=== PATIENT | female | born 1945 | race Caucasian/White ===

== ENCOUNTER 2018-07-08 11:18 | Inpatient (IN) | payer MEDICARE, BC ==
--- NOTE | 2018-07-08 11:32 | ED ---
HPI Chest Pain - HPI Summary HPI Summary: A 73 y/o F brought in by ambulance sent from Dr. Starks's, cardio, office to ED c/o two episodes of mid-sternal CP with initial onset early yesterday morning at 0300. The CP woke her from sleep, she took valium which made her feel better. She felt at baseline after that. Last night, she had sharp, severe mid- sternal CP at approx 0500 that woke her from sleep again. She took Valium, and feels mostly better, but there is some mild CP still present at bedside. Denies nausea, SOB. She has not had similar CP to this prior. She was recently in [place], and travelled back to [place] two weeks ago, and she is supposed to travel to [place] this evening because she is scheduled for a cataracts operation in two days. PMHx: AAA, HTN. Denies PMHx of DM, ND, angina. No prior abd surgeries. - History of Current Complaint Chief Complaint: EDChestPainROMI Time Seen by Provider: 07/08/18 11:26 Hx Obtained From: Patient, Family/New Grad Rn - , Medical Records Onset/Duration: Started Days Ago, Atraumatic, Still Present Timing: Intermittent, Lasting Minutes Initial Severity: Severe Current Severity: Mild Pain Intensity: 0 Pain Scale Used: 0-10 Numeric Chest Pain Location: Mid Sternal Character: Sharp/Stabbing Alleviating Factor(s): Other: - valium Associated Signs and Symptoms: Negative: Shortness of Breath, Nausea - Allergy/Home Medications Allergies/Adverse Reactions: Allergies Allergy/AdvReac Type Severity Reaction Status Date / Time No Known Allergies Allergy Verified 07/08/18 11:24 Home Medications: Home Medications Aspirin EC TAB* [Ecotrin EC Low Dose 81 MG*] 81 mg PO DAILY 07/08/18 [History Confirmed 07/08/18] Calcium Carbonate/Vitamin D3 [Calcium/Vitamin D] 1 cap PO DAILY 07/08/18 [ History Confirmed 07/08/18] Diazepam TAB(*) [Valium TAB(*)] 5 mg PO Q6H PRN 07/08/18 [History Confirmed ] Esomeprazole(NF) [NEXium(NF)] 20 mg PO DAILY 07/08/18 [History Confirmed ] Hydrochlorothiazide TAB* [Hydrodiuril TAB*] 12.5 mg PO DAILY 07/08/18 [History Confirmed 07/08/18] Irbesartan [Avapro] 75 mg PO DAILY 07/08/18 [History Confirmed 07/08/18] Conifer-3 Fatty Acids (Nf) [Fish Oil (NF)] 1,000 mg PO DAILY 07/08/18 [History Confirmed 07/08/18] Spironolactone TAB* [Aldactone TAB*] 12.5 mg PO DAILY 07/08/18 [History Confirmed 07/08/18] Vitamin B Complex CAP* [B Complex CAP*] 1 cap PO DAILY 07/08/18 [History Confirmed 07/08/18] PMH/Surg Hx/FS Hx/Imm Hx Previously Healthy: No Endocrine/Hematology History: Denies: Hx Diabetes Cardiovascular History: Reports: Hx Aneurysm, Hx Hypertension Denies: Hx Angina, Hx Myocardial Infarction Respiratory History: Comment Only: Other Respiratory Problems/Disorders - hx of colapsed lung 1995 unknown reason Infectious Disease History: No Infectious Disease History: Denies: Traveled Outside the [place] in Last 30 Days - Family History Known Family History: Positive: Cardiac Disease, Diabetes - Social History Occupation: Retired Lives: With Family Hx Tobacco Use: Yes Review of Systems Positive: Chest Pain Negative: Shortness Of Breath Negative: Nausea All Other Systems Reviewed And Are Negative: Yes Physical Exam - Summary Physical Exam Summary: Appearance: Well-appearing, Well-nourished, lying in bed comfortably Skin: Warm, dry, no obvious rash Eyes: sclera anicteric, no conjunctival pallor ENT: mucous membranes moist, pharynx appears normal Neck: Supple, nontender Respiratory: Clear to auscultation, no signs of respiratory distress Cardiovascular: Normal S1, S2. No murmurs. Normal distal pulses in tibial and radial bilaterally. Abdomen: Soft, nontender, normal active bowel sounds present Musculoskeletal: Normal, Strength/ROM Intact Neurological: A&Ox3, awake and alert, mentation is normal, speech is fluent and appropriate Psychiatric: affect is normal, does not appear anxious or depressed Triage Information Reviewed: Yes Vital Signs On Initial Exam: Initial Vitals Temp Pulse Resp BP Pulse Ox 97.4 F 71 19 156/76 98 07/08/18 11:19 07/08/18 11:19 07/08/18 11:19 07/08/18 11:19 07/08/18 11:19 Vital Signs Reviewed: Yes Diagnostics - Vital Signs Vital Signs Temp Pulse Resp BP Pulse Ox 07/08/18 11:19 97.4 F 71 19 156/76 98 - Laboratory Result Diagrams: 07/09/18 06:02 07/08/18 11:42 Lab Statement: Any lab studies that have been ordered have been reviewed, and results considered in the medical decision making process. - Radiology CXR Radiology Interpretation Completed By: Radiologist Summary of Radiographic Findings: IMPRESSION: No active cardiopulmonary disease. ED provider has reviewed this report. - CT C/A/P CTA CT Interpretation Completed By: Radiologist Summary of CT Findings: IMPRESSION: 1. DILATATION OF THE ASCENDING THORACIC AORTA UP TO 3.9 CM TRANSVERSELY WITH SPURRING OF THE AORTIC ROOT. THERE IS NO INTIMAL FLAP TO SUGGEST DISSECTION. 2. INFRARENAL ABDOMINAL AORTIC ANEURYSM MEASURING UP TO 3.2 CM IN MAXIMUM TRANSVERSE DIMENSION. 3. ANEURYSMAL DILATATION OF THE RIGHT COMMON ILIAC ARTERY. 4. ATHEROSCLEROSIS. 5. NO PULMONARY ARTERIAL FILLING DEFECT TO SUGGEST PULMONARY EMBOLISM. 6. DIVERTICULOSIS. ED provider has reviewed this report. - Ultrasound No standard instances Ultrasound Interpretation Completed By: Radiologist Summary of Ultrasound Findings: ABD U/S IMPRESSION: BILOBED ANEURYSM OF THE INFRARENAL ABDOMINAL AORTA MEASURING UP TO 2.9 CM TRANSVERSELY. ED provider has reviewed this report. - EKG 1146 Cardiac Rate: NL - 65 bpm EKG Rhythm: Sinus Rhythm Summary of EKG Findings: Lateral T-wave inversions in V5 and V6, which is new compared to most recent EKG on 06/09/2008. Re-Evaluation - Re-Evaluation 1 Re-Evaluation Time: 12:37 Change: Improved Comment: Discussing results with patient. Patient's pain is minimal. Chest Pain Course/Dx - Course Course Of Treatment: Pt is a 73 y/o F presenting after two episodes of mid- sternal CP that woke her from sleep with initial onset early yesterday morning at 0300. Most recently, she had sharp, severe mid-sternal CP at approx 0500 this date. She took Valium, and felt mostly better, with some mild CP still present at bedside. Denies nausea, SOB. Air travel from [place] two weeks ago. PMHx: AAA, HTN. Denies PMHx of DM, ND, angina. No prior abd surgeries. Lab work shows RBC: 5.21, D-dimer: 577, Creatinine: 1.06, BUN/C: 20.8, troponin: 1.00. EKG shows NSR at 65 bpm with lateral T-wave inversions in V5 and V6, which is new compared to most recent EKG on 06/09/2008. UA results are unremarkable. CXR is unremarkable. ABD ultrasound shows "BILOBED ANEURYSM OF THE INFRARENAL ABDOMINAL AORTA MEASURING UP TO 2.9 CM TRANSVERSELY." C/A/P CTA shows "1. DILATATION OF THE ASCENDING THORACIC AORTA UP TO 3.9 CM TRANSVERSELY WITH SPURRING OF THE AORTIC ROOT. THERE IS NO INTIMAL FLAP TO SUGGEST DISSECTION. 2. INFRARENAL ABDOMINAL AORTIC ANEURYSM MEASURING UP TO 3.2 CM IN MAXIMUM TRANSVERSE DIMENSION. 3. ANEURYSMAL DILATATION OF THE RIGHT COMMON ILIAC ARTERY. 4. ATHEROSCLEROSIS. 5. NO PULMONARY ARTERIAL FILLING DEFECT TO SUGGEST PULMONARY EMBOLISM. 6. DIVERTICULOSIS.". Consult with Dr. Patterson, cardio, who recommended heparin, CTA and hospitalist admission. Consult with Dr. Phillips, hospitalist, who will admit patient. - Diagnoses Provider Diagnoses: Non-STEMI (non-ST elevated myocardial infarction) - Provider Notifications Discussed Care Of Patient With: Zac Patterson - cardio Time Discussed With Above Provider: 12:49 Instructed by Provider To: Other - Recommends CTA, heparin and hospitalist admission. - Critical Care Time Critical Care Time: 30-74 min Discharge - Sign-Out/Discharge Documenting (check all that apply): Patient Departure - ADMIT Patient Received Moderate/Deep Sedation with Procedure: No - Discharge Plan Condition: Guarded Disposition: ADMITTED TO [facility] - Billing Disposition and Condition Condition: GUARDED Disposition: Admitted to [facility] - Attestation Statements Document Initiated by Scribe: Yes Documenting Scribe: Surjit Bruce Provider For Whom Scribe is Documenting (Include Credential): Dr. Basil Montoya MD Scribe Attestation: Surjit Marion scribed for Dr. Basil Montoya MD on 07/09/18 at 1123. Scribe Documentation Reviewed: Yes Provider Attestation: The documentation as recorded by the Surjit junior accurately reflects the service I personally performed and the decisions made by me, Dr. Basil Montoya MD Status of Scribe Document: Viewed Consult Consult: 1250: Consult with Dr. Phillips, hospitalist Will admit patient.
[2018-07-08 11:50] LABS: ABS Eosinophils 0.1 10^3/ul (0-0.6); ABS Lymphocytes 1.5 10^3/ul (1.0-4.8); ABS Monocytes 0.6 10^3/ul (0-0.8); ABS Neutrophils 4.2 10^3/ul (1.5-7.7); Eosinophil % 1.5 %; Hematocrit 45 % (35-47); Hemoglobin 15.1 g/dL (12.0-16.0); Lymphocyte % 23.6 %; Mean Corpuscular HGB Conc 34 g/dL (31-36); Mean Corpuscular Hemoglobin 29 pg (27-31); Mean Corpuscular Volume 86 fL (80-97); Mean Platelet Volume 7.7 fL (7.4-10.4); Platelet Count 149 10^3/uL (150-450); Red Blood Count 5.21 10^6 /uL (3.70-4.87); Red Cell Distribution Width 14 % (10.5-15); White Blood Count 6.5 10^3/uL (3.5-10.8)
[2018-07-08 12:13] LABS: ALT 15 U/L (7-52); AST 27 U/L (13-39); Albumin 4.2 g/dL (3.2-5.2); Albumin/Globulin Ratio 1.3 (1-3); Alkaline Phosphatase 77 U/L (34-104); Anion Gap 6 mmol/L (2-11); BUN/Creatinine Ratio 20.8 (8-20); Blood Urea Nitrogen 22 mg/dL (6-24); CO2 Carbon Dioxide 30 mmol/L (22-32); Calcium 9.9 mg/dL (8.6-10.3); Chloride 105 mmol/L (101-111); EGFR African American 61.3 (>60); EGFR Non-African American 50.7 (>60); Globulin 3.2 g/dL (2-4); Glucose 109 mg/dL (70-100); Potassium 4.2 mmol/L (3.5-5.0); Sodium 141 mmol/L (135-145); Total Protein 7.4 g/dL (6.4-8.9)
[2018-07-08] MEDS ORDERED: Heparin DRIP 25,000 UNITS(*) 25,000 UNITS/500 ML BAG IV SCH (13:00)
[2018-07-08] MEDS ORDERED: Iodixanol* (CONTRAST) 320 MG/ML 100 ML SDV IV ONE (13:00)
[2018-07-08] MEDS ORDERED: Heparin VIAL(*) 5000 UNITS/ML VIAL (FIVE THOUSAND) IV PRN (13:04)
[2018-07-08 13:11] LABS: Urine Appearance Clear; Urine Bilirubin Negative (Negative); Urine Blood Negative (Negative); Urine Color Straw; Urine Glucose Negative (Negative); Urine Ketones Negative (Negative); Urine Nitrite Negative (Negative); Urine Protein Negative (Negative); Urine Specific Gravity 1.004 (1.010-1.030); Urine Urobilinogen Negative (Negative)
[2018-07-08] MEDS ORDERED: Aspirin 81 mg CHEW TAB* 81 MG TAB.CHEW PO ONE (13:24)
[2018-07-08] MEDS ORDERED: Diazepam TAB(*) 5 MG PO PRN (13:36)
[2018-07-08] MEDS ORDERED: Diazepam TAB(*) 5 MG PO ONE (13:38)
[2018-07-08] MEDS ORDERED: Acetaminophen TAB* 325 MG PO PRN (13:44)
[2018-07-08] MEDS ORDERED: Nitroglycerin TAB 0.4 MG* 0.4 MG TAB SL PRN (13:44)
[2018-07-08 14:47] LABS: Troponin I 0.93 ng/mL (<0.04)
[2018-07-08] MEDS ORDERED: Iodixanol 320 (CONTRAST) 100 ML SDV IV SCH (15:06)
[2018-07-08 15:50] LABS: Activated Partial Thrombo Time 29.9 seconds (26.0-36.3)
--- NOTE | 2018-07-08 16:08 | HP ---
CC: Dr. Miguel; Dr. Starks; Dr. Patterson.* HISTORY AND PHYSICAL: DATE OF ADMISSION: 07/08/18 TIME OF EVALUATION: 1:20 p.m. PRIMARY CARE PROVIDER: Dr. Miguel. HEARING OFFICER: Dr. Starks. CONSULTING HEARING OFFICER: Dr. Patterson. HISTORY OF PRESENT ILLNESS: Mrs. Keen is a 73-year-old lady with a past medical history of hypertension, aortic aneurysm, anxiety, who presents to the emergency room with complaints of chest pain. The patient states that she was in her usual state of health until 2 nights ago. She had actually been seen by Cardiology on 05/28/18 and at that time, she was thought to have slight orthostatic hypotension and possible dehydration, and on that visit, her diuretics had been decreased to every other day. She said that she was feeling well until the evening on 07/06/18. She went to bed in her usual state of health and woke up around 2 in the morning with retrosternal chest pain, 5/10, described as a pressure. She states that she took a Valium. She was able to relax. Her pain subsided and she was able to sleep. Yesterday, she was feeling her usual. She went to do mother's Day celebration and had no complaints of chest pain or discomfort. She went to bed and around 4 in the morning, she woke up once again with this retrosternal chest pain, at this time was described as severe, 10/10, intensity pressure like. She once again took her Valium with some improvement and went to Dr. Starks's office where she was seen by a nurse and advised to come to the emergency room for further evaluation. At the time of my interview, the patient denies chest pain, palpitation, shortness of breath, nausea or any other complaints. She is very anxious and emotional about her test results. She denies any other prior episodes of chest pain at rest or exertional. There is no fever, chills, nausea, vomiting, diarrhea, shortness of breath, cough, or urinary complaints. PAST MEDICAL HISTORY: 1. Hypertension. 2. Aneurysm of the aorta (as per Dr. Starks's note thoracic aorta, but as per the patient's significant other, she has thoracic and abdominal aorta aneurysm). 3. Moderate mitral regurgitation. 4. Jhve-xh-xyqykmxy aortic regurgitation. 5. Anxiety. PAST SURGICAL HISTORY: 1. Status post hysterectomy and left oophorectomy. 2. Pneumothorax. MEDICATION LIST: 1. Aspirin 81 mg p.o. daily. 2. Calcium plus vitamin D 1 capsule p.o. daily. 3. Diazepam 5 mg p.o. q.6 hours p.r.n. anxiety. 4. Nexium 10 mg p.o. daily as needed for GERD. 5. Hydrochlorothiazide 12.5 mg p.o. daily. 6. Spironolactone 12.5 mg p.o. daily. Please note that on the last Cardiology note, the patient was supposed to be taking hydrochlorothiazide on Mondays, Wednesdays, and Fridays and spironolactone on Tuesdays, , and Saturdays , but she is actually taking both daily. 7. Irbesartan 75 mg p.o. daily. 8. Fish oil 1000 mg p.o. daily. 9. Vitamin B 1 capsule p.o. daily. ALLERGIES: The patient has no known drug allergies, but she did have reaction to Paxil and Lexapro. FAMILY HISTORY: Father had coronary artery disease. Her mother had a history of hypertension and of a stroke, also had diabetes. 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 She is a former smoker of 1 pack a day for 21 years and quit 23 years ago. She occasionally has a glass of wine. Surrogate decision maker is her significant other, Basil Nj, phone number is [phone]. REVIEW OF SYSTEMS: A 14-point review of systems was performed and all the pertinent negatives and positive findings are in the HPI. PHYSICAL EXAMINATION GENERAL: The patient is a pleasant lady, anxious, sitting up in the ED stretcher, in no acute distress. VITAL SIGNS: Temperature 98.3, heart rate is 69, respiratory rate is 16, oxygen saturation is 99% on room air, blood pressure is 165/90. HEENT: Pupils are equal. Moist mucous membranes. CHEST: Breath sounds bilaterally with no added sounds. CVS: Normal S1, S2. Regular rate and rhythm. No systolic murmur. ABDOMEN: Soft and nontender. Bowel sounds are present. There is no pulsatile mass. EXTREMITIES: No edema. NEUROLOGIC: She is alert and oriented x3. She can move all 4 extremities. LABORATORY AND IMAGING DATA: The patient had a CBC that showed WBC of 6.5, hemoglobin of 15.1, hematocrit of 45, platelets of 149 with 65% neutrophils. D - Dimer is 577. Chemistry: Sodium 141, potassium 4.2, chloride 105, bicarb of 30, BUN of 22, creatinine of 1.0, glucose of 109, calcium 9.9. LFTs are normal. First troponin is 1. EKG done on 07/08/18 showed sinus rhythm at 65 beats per minute with ST depressions and T-wave inversions in V5 and V6. Those are new when compared to her prior EKG, but the last one in our system from 2008. An abdominal ultrasound was performed, but the report is still pending. ASSESSMENT AND PLAN: Mrs. Keen is a 73-year-old female with a past medical history of hypertension, aortic aneurysm, who presents to the emergency room with complaints of 2 episodes of chest pain, found to have a [id number] myocardial infarction. 1. [id number]-qsbnqvmnf myocardial infarction. The patient will be admitted to the telemetry floor and she will receive aspirin, heparin drip, and statin. Her heart rate is in 60s, so we will not start beta pancho at this time. We will check serial troponins, serial EKGs, and also fasting lipid profile. Cardiology consult was requested with Dr. Patterson, should decide what is the next step on her management. I suspect she probably need a cardiac catheterization. An echocardiogram was ordered to look for wall motion abnormalities and to document her ejection fraction. Her last echo as per Dr. Starks's note was done in 2014, had an EF of 55% to 60% with [id number] AR, mild-to- moderate AI, mild-to- moderate TR, mildly dilated ascending aorta. She will also have a CTA of the chest, abdomen and pelvis to evaluate her aortic aneurysm , but I suspect her symptomatology is secondary to [id number] [place]. 2. Hypertension. The patient will be continued on hydrochlorothiazide, irbesartan, and spironolactone. I suspect her blood pressure elevation at this time is secondary to anxiety related to her diagnosis. 3. Anxiety. We will continue diazepam as needed. 4. DVT prophylaxis. The patient has a score of 3 on a DVT prophylaxis assessment guide and she is already started on heparin drip . 5. Code status is full. TIME SPENT: Approximately 60 minutes was spent with the patient and significant other interview, medical records review, physical examination to complete this admission, more than half of this time was spent lgcz-gw-busa with the patient and coordination of care. [id number]/[facility] #: [id number] MTDD
[2018-07-08] MEDS: Hydrochlorothiazide TAB* 25 MG PO SCH (16:12)
[2018-07-08] MEDS: Spironolactone TAB* 25 MG PO SCH (16:13)
[2018-07-08] MEDS: Losartan TAB* 25 MG PO SCH (16:13)
--- NOTE | 2018-07-08 16:55 | ECHO ---
*[facility]* [place] [address] Fax #: [phone] Transthoracic Echocardiogram Patient: Osmani, Height: 66 in / Viesia 167.6 cm : 1945 Weight: 134.7 lb / Study Date: 07/08/2018 61.2 kg Age: 73 BP: 148 / 76 Gender: F BMI/BSA: 21.8 kg/m^2 HR: 64 bpm / 1.69 m^2 *[employer]ilities Operator: * Ena Sepulveda [facility] *Referring Physician: * Emi MontgomeryReading Physician: * Zac Patterson MD Indications: Myocardial Infarction (new). History: Aortic aneurysm. Risk factors: Current tobacco use. Hypertension. Conclusions Summary: 1. Left ventricle: Systolic function is normal. The estimated ejection fraction is 50-55%. Hypokinesis of the inferolateral myocardium. 2. Right ventricle: Systolic function is normal. 3. Mitral valve: There is no evidence of stenosis. There is mild regurgitation. 4. Aortic valve: There is no evidence of stenosis. There is mild to moderate regurgitation. 5. Tricuspid valve: There is mild regurgitation. 6. Ascending aorta: The ascending aorta is mildly dilated. 7. Pericardium, extracardiac: There is no significant pericardial effusion. Study data: Transthoracic echocardiogram. Procedure: Transthoracic echocardiography was performed. Image quality was fair. Complete 2D, spectral Doppler, and color flow Doppler. Location: Bedside. Patient status: Inpatient. Patient room number: 447 01. Rhythm: Normal sinus rhythm. Findings Left ventricle: The cavity size is normal. Wall thickness is mildly increased. Systolic function is normal. The estimated ejection fraction is 50-55%. Regional wall motion abnormalities: Hypokinesis of the inferolateral myocardium. There is no consistent Doppler evidence of clinically significant diastolic dysfunction. Right ventricle: The cavity size is normal. Systolic function is normal. Systolic pressure is within the normal range. Ventricular septum: The outflow septum has a sigmoid appearance. Left atrium: The atrium is normal in size. Right atrium: The atrium is normal in size. Mitral valve: The annulus is mildly calcified. The leaflets are mildly thickened. There is no evidence of stenosis. There is mild regurgitation. The peak diastolic gradient is 2.0 mm Hg. Aortic valve: The annulus is mildly calcified. The valve is trileaflet. The leaflets are normal thickness. There is no evidence of stenosis. There is mild to moderate regurgitation. The ratio of LVOT to aortic valve peak velocity is 0.77. The ratio of LVOT to aortic valve mean velocity is 0.78. The mean systolic gradient is 3.0 mm Hg. The peak systolic gradient is 7.0 mm Hg. Tricuspid valve: The leaflets are normal thickness. There is no evidence of stenosis. There is mild regurgitation. Pulmonic valve: Not well visualized. There is mild regurgitation. The peak systolic gradient is 2.0 mm Hg. Aorta: Aortic root: The aortic root is mildly dilated. Ascending aorta: The ascending aorta is mildly dilated. Aortic arch: The aortic arch is appears normal. Pericardium: There is no significant pericardial effusion. Pulmonary arteries: Not well visualized. Systemic veins: Inferior vena cava: The vessel is normal in size. The respirophasic diameter changes are blunted (< 50%). Measurements Left ventricle Value Ref Mitral valve Value Ref LUCIANA, LAX 4.1 cm 3.8 - 5.2 Peak E 0.71 m/sec ----- ESD, LAX 2.7 cm 2.2 - 3.5 Peak A 0.74 m/sec ----- FS, LAX 34 % 27 - 45 Decel time 216 ms ----- PW, ED, LAX (H) 1.1 cm 0.6 - 0.9 Peak grad, D 2.0 mm Hg ----- EF 64 % 54 - 74 Peak E/A ratio 1 ----- E', lat antonio, TDI (L) 6.0 cm/sec >=10.0 E/e', lat antonio, 12 Pulmonic valve Value Ref TDI Peak v, S 0.71 m/sec ----- E', med antonio, TDI (L) 4.4 cm/sec >=7.0 Peak grad, S 2.0 mm Hg --- -- E/e', med antonio, 16 TDI Tricuspid valve Value Ref E', avg, TDI 5.2 cm/sec TR peak v 2.6 m/sec <=2 .8 E/e', avg, TDI 14 <=14 Peak RV-RA grad, S 27 mm Hg --- -- LVOT Value Ref Aortic root Value Ref Peak krishna, S 1 m/sec Root diam 3.7 cm <3.9 Mean grad, S 2 mm Hg Ascending aorta Value Ref Ventricular septum Value Ref AAo AP diam, S 3.6 cm ----- IVS, ED, LAX (H) 1.5 cm 0.6 - 0.9 Aortic arch Value Ref Right ventricle Value Ref Arch diam 2.5 cm ----- LUCIANA, LAX 2.0 cm Pressure, S 30 mm Hg Decending aorta Value Ref Kelsie peak krishna 0.45 m/sec ----- Left atrium Value Ref AP dim, ES 2.80 cm 2.70 - Pulmonary artery Value Ref 3.80 Pressure, S 28.0 mm Hg ----- Right atrium Value Ref Inferior vena cava Value Ref Estimated RAP 3 mm Hg Diam 1.8 cm ----- Aortic valve Value Ref Pulmonary veins Value Ref Antonio diam, ED 2.1 cm Peak v, S 0.58 m/sec ----- Peak v, S 1.29 m/sec Peak v, D 0.32 m/sec ----- VTI, S 27.9 cm Peak S/D ratio 1.8 ----- Mean grad, S 3.0 mm Hg Peak A rev v 0.26 m/sec ----- Peak grad, S 7.0 mm Hg A rev duration 132 ms ----- AR peak v 4.08 m/sec AR PHT 488 ms AR peak grad 67 mm Hg Legend: (L) and (H) marc values outside specified reference range. Prepared and electronically signed by Zac Patterson MD 07/08/2018 16:55
[2018-07-08 17:58] LABS: Troponin I 1.19 ng/mL (<0.04)
[2018-07-08] MEDS ORDERED: Ticagrelor* 90 MG TAB PO ONE (18:54)
--- NOTE | 2018-07-08 19:24 | CONS ---
CC: Dr. Vonnie Miguel * CARDIOLOGY CONSULTATION: DATE OF CONSULT: 07/08/18 INDICATION FOR CONSULTATION: Chest pain, non-STEMI. HISTORY OF PRESENT ILLNESS: The patient is a 73-year-old female with a history of hypertension, history of mild aortic aneurysm in her ascending aorta, who is having typical and unstable anginal type chest pain over the weekend. The patient states that on Sunday night she had an episode of mild chest discomfort with sort of a heaviness under her chest. It did not radiate anywhere. She was a little diaphoretic with it. She had no nausea. It lasted for approximately an hour and then resolved. The patient felt unwell most of the day on Sunday and then at 1 o'clock in the morning on Sunday morning, she had an episode of severe chest pain that lasted for approximately an hour. She rated it as about 8/10. She had some diaphoresis associated with it. The pain finally subsided and she was able to get to sleep. This morning, she went to our [place] office for evaluation and she was sent to the emergency room. On arrival to the emergency room, her EKG demonstrated normal sinus rhythm with T-wave inversions in the lateral leads compared to her previous EKGs. The patient was admitted to the hospital and started on heparin. When I went to see the patient at 5 o'clock, she was having about 2/10 chest pain that was slightly higher than her chest discomfort when she left the emergency room. She was given 1 sublingual nitroglycerin and her pain completely resolved. The patient does have a mildly dilated ascending aortic aneurysm that measures 3.9 cm. She has had CAT scans and echocardiograms throughout the years, it has been stable. PAST MEDICAL HISTORY: Significant for ascending aortic aneurysm, mild aortic stenosis, hypertension. PAST SURGICAL HISTORY: Hysterectomy. CURRENT MEDICATIONS: 1. Avapro 75 mg a day. 2. Spironolactone 12.5 mg a day. 3. Hydrochlorothiazide 12.5 mg a day. 4. Frost-3 tablets. 5. Aspirin 81 mg a day. The patient had been on atenolol and diltiazem in the past. ALLERGIES: To PAXIL and LEXAPRO. FAMILY HISTORY: Father had history of coronary artery disease, at 90. Mother of a myocardial infarction at 85. SOCIAL HISTORY: She lives with her significant other. 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 She is a former smoker. She quit 23 years ago. One glass of wine a day. She exercises on a regular basis. REVIEW OF SYSTEMS: Negative for fevers and chills. Negative for changes in bowel or bladder habits. Negative for change in weight. PHYSICAL EXAM: Height is 5 feet 6 inches, weight is 123 pounds, temperature 97.8, heart rate is 65, blood pressure 133/62, respiratory rate is 16, oxygen saturation 100% on room air. Sclerae anicteric. Oropharynx is pink without erythema. Carotids are 2+ without bruits. JVD is normal. Thyroid is normal. Cardiac Exam: S1, S2 without any murmurs, rubs, or gallops. PMI is normal. Lungs are clear to auscultation. Extremities show no edema. She has 2+ pulses throughout. The patient is awake, alert, and oriented. She moves all 4 extremities equally. DIAGNOSTIC STUDIES/LAB DATA: CBC within normal limits. Chemistries within normal limits. Initial troponin 1.00, second troponin 0.93. Her transthoracic echocardiogram shows normal LV systolic function, ejection fraction of 50%. There is inferolateral hypokinesis. The valves are all within normal limits. IMPRESSION AND PLAN: This is a 73-year-old female, who comes in with typical unstable anginal type symptoms and elevated troponin. She was ruled in for non- ST- elevation myocardial infarction. The patient was started on beta-blockers and heparin in the emergency room. Again, the patient was having some mild chest pain on my arrival to the floor, but 1 sublingual nitroglycerin resolved the discomfort. The patient denies any nausea or vomiting. She denies any diaphoresis. The patient will continue on her IV heparin, nitroglycerin p.r.n. Her other cardiac medications will continue. The patient will undergo cardiac catheterization in the morning unless she becomes unstable overnight. This case was discussed with Dr. Jorge. [id number]/[facility] #: [id number] WILLIAM
[2018-07-08 21:05] LABS: Troponin I 1.51 ng/mL (<0.04)
[2018-07-08] MEDS: Metoprolol Tartrate TAB* 25 MG PO SCH (21:51)
[2018-07-08] MEDS: Atorvastatin* 40 MG TAB PO SCH (21:52)
[2018-07-08] MEDS ORDERED: NS 0.9% 1000 ML** 1,000 ML IV SCH (23:55)
[2018-07-09 00:01] LABS: Troponin I 1.63 ng/mL (<0.04)
[2018-07-09 02:58] LABS: Troponin I 1.78 ng/mL (<0.04)
[2018-07-09 06:29] LABS: ABS Basophils 0.1 10^3/ul (0-0.2); ABS Eosinophils 0.2 10^3/ul (0-0.6); ABS Lymphocytes 1.4 10^3/ul (1.0-4.8); ABS Monocytes 0.6 10^3/ul (0-0.8); ABS Neutrophils 4.4 10^3/ul (1.5-7.7); Eosinophil % 2.6 %; Hematocrit 43 % (35-47); Hemoglobin 14.4 g/dL (12.0-16.0); Lymphocyte % 20.7 %; Mean Corpuscular HGB Conc 34 g/dL (31-36); Mean Corpuscular Hemoglobin 29 pg (27-31); Mean Corpuscular Volume 86 fL (80-97); Platelet Count 146 10^3/uL (150-450); Red Blood Count 4.99 10^6 /uL (3.70-4.87); Red Cell Distribution Width 14 % (10.5-15); White Blood Count 6.6 10^3/uL (3.5-10.8)
[2018-07-09 06:47] LABS: Cholesterol 187 mg/dL; HDL Cholesterol 59.3 mg/dL; LDL Cholesterol 116 mg/dL; Triglycerides 61 mg/dL
[2018-07-09 06:50] LABS: Troponin I 1.18 ng/mL (<0.04)
[2018-07-09] MEDS: Spironolactone TAB* 25 MG PO SCH (07:54)
[2018-07-09] MEDS: Losartan TAB* 25 MG PO SCH (07:56)
[2018-07-09] MEDS: Hydrochlorothiazide TAB* 25 MG PO SCH (07:57)
[2018-07-09] MEDS: Aspirin EC TAB* 81 MG TAB.EC PO SCH (07:58)
[2018-07-09] MEDS: Metoprolol Tartrate TAB* 25 MG PO SCH ×2 (07:59→20:46)
[2018-07-09] MEDS ORDERED: diPHENhydraMINE PO* 25 MG PO PRN (08:00)
[2018-07-09] MEDS: Calcium/Vitamin D TAB 250/125* TAB PO SCH (08:00)
[2018-07-09] MEDS: Ticagrelor* 90 MG TAB PO SCH ×2 (08:01→20:44)
--- NOTE | 2018-07-09 09:26 | PN ---
Subjective Date of Service: 07/09/18 Objective Active Medications: Acetaminophen (Tylenol Tab*) 650 mg PO Q6H PRN Aspirin (Aspirin Ec Tab*) 81 mg PO DAILY [facility] Atorvastatin Calcium (Lipitor*) 40 mg PO 2100 [facility] Calcium/Vitamin D (Oscal D Tab 250/125*) 1 tab PO DAILY [facility] Diazepam (Valium Tab(*)) 5 mg PO Q6H PRN Heparin Sodium (Porcine) (Heparin Vial(*)) 0 - 3,650 units IV .SEE COMMENTS PRN Hydrochlorothiazide (Hydrodiuril Tab*) 12.5 mg PO DAILY [facility] Heparin Sodium/Dextrose (Heparin Drip 25,000 Units(*)) 25,000 units in 500 mls @ 0 mls/hr IV PER RATE JEANETH; Protocol Sodium Chloride (Ns 0.9% 1000 Ml) 1,000 mls @ 75 mls/hr IV .per rate JEANETH Iodixanol (Visipaque 320 (Contrast)) 100 ml IV ONCE JEANETH Losartan Potassium (Cozaar Tab*) 25 mg PO DAILY [facility] Metoprolol Tartrate (Lopressor Tab*) 25 mg PO BID [facility] Nitroglycerin (Nitroglycerin Tab 0.4 Mg*) 0.4 mg SL Q5M PRN Spironolactone (Aldactone Tab*) 12.5 mg PO DAILY [facility] Ticagrelor (Brilinta*) 90 mg PO BID [facility] Vital Signs: Temp Pulse Resp BP Pulse Ox 97.1 F 63 20 138/62 98 07/09/18 07:29 07/09/18 07:29 07/09/18 07:29 07/09/18 07:29 07/09/18 07:29 Oxygen Devices in Use Now: None Result Diagrams: 07/09/18 06:02 07/08/18 11:42 Assess/Plan/Problems-Billing Assessment: Ms. Keen is a 73 yo F with a PMH of HTN, aortic aneurysm, anxiety who was admitted on 07/08/18 with chest pain and NSTEMI. - Patient Problems (1) NSTEMI (non-ST elevated myocardial infarction) Comment: - Troponin peaked at 1.78. EKG with T wave inversions in lateral leads. Echo shows hypokinesis of the inferolateral myocardium. - Appreciate cardiology consultation. Plan for cardiac cath today. - Continue heparin gtt. Continue aspirin, brilinta, atorvastatin, metoprolol, and losartan (2) Hypertension Comment: - SBP 110-130s - Continue hctz, losartan, metoprolol, spironolactone (3) Aortic aneurysm Comment: - CTA chest/abd/pelvis found stable thoracic and abdominal aneurysms < 5.5cm. - Monitor per routine. (4) Anxiety Comment: - Continue diazepam (5) DVT prophylaxis Comment: - Heparin gtt. (6) Full code status Comment: - Inpatient
--- NOTE | 2018-07-09 09:44 | PN ---
Subjective Date of Service: 07/09/18 Interval History: Ms. Keen reports that she is feeling well this morning though she is nervous about her cardiac cath. She has had no chest pain since taking nitroglycerin yesterday. Objective Active Medications: Acetaminophen (Tylenol Tab*) 650 mg PO Q6H PRN Aspirin (Aspirin Ec Tab*) 81 mg PO DAILY [facility] Atorvastatin Calcium (Lipitor*) 40 mg PO 2100 [facility] Calcium/Vitamin D (Oscal D Tab 250/125*) 1 tab PO DAILY [facility] Diazepam (Valium Tab(*)) 5 mg PO Q6H PRN Diphenhydramine HCl (Benadryl Po*) 25 mg PO ONCE PRN Heparin Sodium (Porcine) (Heparin Vial(*)) 0 - 3,650 units IV .SEE COMMENTS PRN Hydrochlorothiazide (Hydrodiuril Tab*) 12.5 mg PO DAILY [facility] Heparin Sodium/Dextrose (Heparin Drip 25,000 Units(*)) 25,000 units in 500 mls @ 0 mls/hr IV PER RATE JEANETH; Protocol Sodium Chloride (Ns 0.9% 1000 Ml) 1,000 mls @ 75 mls/hr IV .per rate [facility] Iodixanol (Visipaque 320 (Contrast)) 100 ml IV ONCE [facility] Losartan Potassium (Cozaar Tab*) 25 mg PO DAILY [facility] Metoprolol Tartrate (Lopressor Tab*) 25 mg PO BID [facility] Nitroglycerin (Nitroglycerin Tab 0.4 Mg*) 0.4 mg SL Q5M PRN Spironolactone (Aldactone Tab*) 12.5 mg PO DAILY [facility] Ticagrelor (Brilinta*) 90 mg PO BID [facility] Vital Signs: Temp Pulse Resp BP Pulse Ox 97.1 F 63 20 138/62 98 07/09/18 07:29 07/09/18 07:29 07/09/18 07:29 07/09/18 07:29 07/09/18 07:29 Oxygen Devices in Use Now: None Appearance: Female lying in bed in NAD Eyes: No Scleral Icterus Ears/Nose/Mouth/Throat: Mucous Membranes Moist Neck: Trachea Midline Respiratory: Symmetrical Chest Expansion and Respiratory Effort, Clear to Auscultation Cardiovascular: NL Sounds; No Murmurs; No JVD, No Edema Abdominal: NL Sounds; No Tenderness; No Distention Extremities: No Edema Skin: No Rash or Ulcers Neurological: Alert and Oriented x 3, NL Muscle Strength and Tone Nutrition: Taking PO's Result Diagrams: 07/09/18 06:02 07/08/18 11:42 Assess/Plan/Problems-Billing Assessment: Ms. Keen is a 73 yo F with a PMH of HTN, aortic aneurysm, anxiety who was admitted on 07/08/18 with chest pain and NSTEMI. - Patient Problems (1) NSTEMI (non-ST elevated myocardial infarction) Comment: - Troponin peaked at 1.78. EKG with T wave inversions in lateral leads. Echo shows hypokinesis of the inferolateral myocardium. - Appreciate cardiology consultation. Plan for cardiac cath today. - Continue heparin gtt. Continue aspirin, brilinta, atorvastatin, metoprolol, and losartan (2) Hypertension Comment: - SBP 110-130s - Continue hctz, losartan, metoprolol, spironolactone (3) Aortic aneurysm Comment: - CTA chest/abd/pelvis found stable thoracic and abdominal aneurysms < 5.5cm. - Monitor per routine. (4) Anxiety Comment: - Continue diazepam (5) DVT prophylaxis Comment: - Heparin gtt. (6) Full code status Comment: Status and Disposition: Inpatient
[2018-07-09] MEDS ORDERED: Heparin 2 UNITS/ML IVPREMIX* 3,000 UNIT/1,500 ML BAG IV ONE (11:02)
[2018-07-09] MEDS ORDERED: Iodixanol 320 (CONTRAST) 100 ML SDV ONE ×2 (11:03→11:20)
[2018-07-09] MEDS ORDERED: Lidocaine 1% INJ* 10 MG/ML 30 ML SDV ONE ×2 (11:03→11:20)
[2018-07-09] MEDS ORDERED: fentaNYL* 50 MCG/ML 2 ML VIAL (100 MCG VIAL) ONE (11:19)
[2018-07-09] MEDS ORDERED: Midazolam* 1 MG/ML 5 ML VIAL (5 MG) ONE (11:19)
[2018-07-09] MEDS ORDERED: Heparin(*) 1000 UNIT/ML 10 ML VIAL CATH LAB IV ONE (11:19)
[2018-07-09] MEDS ORDERED: VERAPAMIL 2.5 MG/ML 2 ML VIAL ** 5 mg/2 ml ONE (11:19)
[2018-07-09] MEDS ORDERED: nitroGLYCERIN DRIP* 25,000 MCG/250 ML BTL ONE (11:20)
[2018-07-09] MEDS ORDERED: Heparin 2 UNITS/ML IVPREMIX* 2,000 UNIT/1,000 ML BAG IV ONE (11:53)
[2018-07-09] MEDS ORDERED: Bivalirudin(*) 250 MG VIAL ONE (11:58)
[2018-07-09] MEDS ORDERED: Nitroglycerin TAB 0.4 MG* 0.4 MG TAB SL PRN (12:43)
[2018-07-09] MEDS: NS 0.9% 1000 ML** 1,000 ML IV SCH ×2 (13:05→17:44)
--- NOTE | 2018-07-09 15:38 | CATH ---
CC: Dr. Zac Patterson; Dr. Vonnie Miguel* INTERVENTIONAL REPORT: DATE OF PROCEDURE: 07/09/18. INDICATION FOR PROCEDURE: Asked by Dr. Zac Patterson who had performed a diagnostic coronary catheterization to perform intervention on a critical 95% proximal circumflex lesion in the setting of a non-STEMI posterior wall myocardial infarction with focal wall motion abnormality on echocardiogram. PROCEDURE: Balloon angioplasty and placement of a 3.0 x 20 mm long Synergy drug - eluting stent in the proximal circumflex postdilated to 3.2 to 3.3 mm with high pressure balloon inflation. EQUIPMENT UTILIZED: 1. Right radial artery sheath - already in place by Dr. Zac Patterson, a 6- Mauritanian Glidesheath Slender. 2. Diagnostic guidewires - a 260 length Cobb curved guidewire and a Wholey 145 length guidewire. 3. Guiding catheter utilized was a VL3.5 curve 6-Mauritanian guide catheter. 4. Interventional wire - a BMW 190 cm guidewire. 5. Three stent placement balloon angioplasty catheter - a 2.75 X 15 mm long Emerge balloon. 6. Stent utilized - a 3.0 x 20 mm long Synergy drug-eluting stent. 7. Post stent deployment balloon catheter - a 3.0 x 12 mm long NC Emerge balloon. 8. Hemostasis device utilized at end of case - a Vasc Band by [employer]. MEDICATIONS GIVEN: An ACT was checked and found to be significantly subtherapeutic. The patient had already received Brilinta earlier in the day 180 mg last night, loading dose 90 mg this morning. As such, Angiomax bolus and an Angiomax drip was started. DESCRIPTION OF PROCEDURE: The patient was already prepped and draped in sterile fashion by Dr. Zac Patterson who performed a diagnostic procedure using the right radial artery approach. On taking over the case after the decision was made by Dr. Patterson that he wished to have the proximal circumflex intervened on, guiding views were obtained utilizing the RunWay 6-Mauritanian VL3.5 curve guide catheter. After the Angiomax bolus was given and a drip started, the BMW was advanced down the circumflex artery. Balloon angioplasty was performed followed by placement of a 3.0 x 20 mm long Synergy drug-eluting stent deployed. Following this, postdeployment balloon inflations to high pressure were made with the 3.0 x 12 mm long NC Emerge balloon. The artery was then assessed in 2 views. The wire and the sheath were removed and hemostasis was obtained with the Vasc Band. A reverse Barbeau was a B. The total contrast used was 110 cc of Visipaque dye. The radiation exposure included 15.1 minutes of fluoro time. The air kerma radiation was 1791 mGy. The DAP radiation was 9659 microgray/m2. RESULTS: INTERVENTION INTO PROXIMAL CIRCUMFLEX ARTERY: Successful reduction of critical 95% lesion to less than 5% PATITO-3 flow, no dissection seen, utilizing balloon angioplasty, placement of a 3.0 x 20 mm long Synergy drug-eluting stent, postdilated to 3.2 to 3.3 mm. OVERALL ASSESSMENT: Successful intervention into critically stenosed proximal circumflex. The patient should be maintained on dual-antiplatelet therapy for minimum of 1 year's time. Aggressive risk factor management through her primary clerk general office with Dr. Patterson as the hospital clerk general office should be pursued. The patient used to be a smoker, but quit 23 years ago and as such, we will not have to deal with any smoking issue. Continued aggressive blood pressure management and control of cholesterol will be under the guidance of her primary physician and her primary clerk general office. [id number]/[facility] #: [id number] WILLIAM
--- NOTE | 2018-07-09 20:20 | CATH ---
CARDIAC CATHETERIZATION REPORT: DATE OF PROCEDURE: 07/09/18 - ROOM #ICU-05 PROCEDURE: Cardiac catheterization including coronary angiography. INDICATION: Non-Q-wave [place], chest pain. The patient is a 73-year-old female with little past medical history, who was admitted to the hospital with typical anginal type symptoms at rest. The patient ruled in for a myocardial infarction and abnormal EKG changes. Cardiac catheterization was recommended. The patient had an echocardiogram yesterday, which demonstrated mildly to moderately reduced LV systolic function, EF 40% with inferolateral severe hypokinesis, no significant valvular abnormality. DESCRIPTION OF PROCEDURE: The patient was brought to the procedure room in a fasting state. Informed consent had been obtained prior to the procedure. All labs had been reviewed. The patient was placed supine on the procedure table. Her right radial area was prepped and draped in the usual fashion. 1% lidocaine was used for local anesthesia. The radial artery was entered by a Seldinger technique and a guidewire was placed. Over the guidewire, a 6-Icelandic hydrophilic sheath was placed. Through the sheath, an infusion of verapamil and nitroglycerin was done. The patient underwent coronary angiography using a 6 -Icelandic JL4 guide catheter and a TIG catheter. A total of 60 cc of Visipaque dye was used. A total of 8 minutes of fluoro time was used. The patient tolerated the procedure well. The patient under-went stenting to her left circumflex artery at the end of the procedure. Please see Dr. Ortiz's notes for those details. FINDINGS: 1. Left main: The left main was normal in size. It bifurcated into the LAD and circumflex. There was mild calcification of the left main itself. There was no evidence of stenosis. 2. Left anterior descending artery: The LAD was normal in size. It gave off 2 diagonal vessels. The proximal LAD had an eccentric 50% stenosis with mild calcification. The remainder of the LAD and the D2 vessel were without disease. The first diagonal vessel had an eccentric 70% stenosis overall with a relatively small vessel 2 mm in size. 3. Left circumflex artery: The circumflex artery was normal in size. It gave off 1 large obtuse marginal branch. There was an eccentric 95% stenosis at the left circumflex into the first OM1 vessel. The remainder of the OM1 vessel had mild disease. 4. Right coronary artery: The right coronary artery was a large dominant vessel giving off a PDA and a posterolateral branch. There was mild calcification of the proximal vessel. There was mild disease in the proximal right coronary artery. The remainder of the vessel and PDA were without disease. IMPRESSION: 1. 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 2. Moderate stenosis of the first diagonal vessel off the LAD. There was a 70 % stenosis. Overall, it was a small vessel about 2 mm in size. 3. 50% stenosis of the proximal right coronary artery. RECOMMENDATIONS: The patient will undergo angioplasty and stenting of her left circumflex artery. [id number]/[facility] #: [id number] WILLIAM
[2018-07-09] MEDS: Atorvastatin* 40 MG TAB PO SCH (20:44)
[2018-07-10 05:11] LABS: ABS Eosinophils 0.1 10^3/ul (0-0.6); ABS Lymphocytes 0.9 10^3/ul (1.0-4.8); ABS Monocytes 0.5 10^3/ul (0-0.8); ABS Neutrophils 4.7 10^3/ul (1.5-7.7); Eosinophil % 2.2 %; Hematocrit 40 % (35-47); Hemoglobin 13.5 g/dL (12.0-16.0); Lymphocyte % 14.4 %; Mean Corpuscular HGB Conc 34 g/dL (31-36); Mean Corpuscular Hemoglobin 29 pg (27-31); Mean Corpuscular Volume 86 fL (80-97); Mean Platelet Volume 7.6 fL (7.4-10.4); Platelet Count 136 10^3/uL (150-450); Red Blood Count 4.67 10^6 /uL (3.70-4.87); Red Cell Distribution Width 14 % (10.5-15); White Blood Count 6.3 10^3/uL (3.5-10.8)
[2018-07-10 05:28] LABS: Calcium 9.1 mg/dL (8.6-10.3); EGFR African American 56.4 (>60); EGFR Non-African American 46.6 (>60)
--- NOTE | 2018-07-10 08:08 | PN ---
<Lauryn Ivy - Last Filed: 07/10/18 08:20> Subjective Date of Service: 07/10/18 - NSTEMI s/p ELO Proximal Lcx Interval History: No recurrent c/o chest pain since intervention. She has been OOB ambulating to toilet with no complaints. She denies dizziness, palpitations, sensation of heart racing, dyspnea or chest pain. She is anxious to go home today. No events occurred overnight per nursing staff ( Kadie CELIS ) whom I personally spoke with. Medications Active Medications: Acetaminophen (Tylenol Tab*) 650 mg PO Q6H PRN PRN Reason: pain/fever Aspirin (Aspirin Ec Tab*) 81 mg PO DAILY [facility] Last Admin: 07/09/18 07:58 Dose: 81 mg Atorvastatin Calcium (Lipitor*) 40 mg PO 2100 [facility] Last Admin: 07/09/18 20:44 Dose: 40 mg Calcium/Vitamin D (Oscal D Tab 250/125*) 1 tab PO DAILY [facility] Last Admin: 07/09/18 08:00 Dose: Not Given Diazepam (Valium Tab(*)) 5 mg PO Q6H PRN PRN Reason: ANXIETY Last Admin: 07/09/18 10:59 Dose: 5 mg Heparin Sodium (Porcine) (Heparin Vial(*)) 0 - 3,650 units IV .SEE COMMENTS PRN PRN Reason: FOR SLIDING SCALE BOLUSING Hydrochlorothiazide (Hydrodiuril Tab*) 12.5 mg PO DAILY [facility] Last Admin: 07/09/18 07:57 Dose: 12.5 mg Iodixanol (Visipaque 320 (Contrast)) 100 ml IV ONCE [facility] Stop: 07/10/18 15:05 Losartan Potassium (Cozaar Tab*) 25 mg PO DAILY [facility] Last Admin: 07/09/18 07:56 Dose: 25 mg Metoprolol Tartrate (Lopressor Tab*) 25 mg PO BID [facility] Last Admin: 07/09/18 20:46 Dose: Not Given Nitroglycerin (Nitroglycerin Tab 0.4 Mg*) 0.4 mg SL Q5M PRN PRN Reason: Chest pain Last Admin: 07/08/18 16:12 Dose: 0.4 mg Spironolactone (Aldactone Tab*) 12.5 mg PO DAILY [facility] Last Admin: 07/09/18 07:54 Dose: 12.5 mg Ticagrelor (Brilinta*) 90 mg PO BID [facility] Last Admin: 07/09/18 20:44 Dose: 90 mg Objective Vital Signs: Temp Pulse Resp BP Pulse Ox 98.9 F 83 25 104/69 94 07/10/18 03:45 07/10/18 07:30 07/10/18 07:30 07/10/18 07:30 07/10/18 07:30 Oxygen Devices in Use Now: None Appearance: A+O x3, cooperative with exam, NAD Ears/Nose/Mouth/Throat: NL Teeth, Lips, Gums, Mucous Membranes Moist Neck: NL Appearance and Movements; NL JVP Respiratory: Symmetrical Chest Expansion and Respiratory Effort, Clear to Auscultation Cardiovascular: NL Sounds; No Murmurs; No JVD, No Edema, - - right radial access site is intact, no blood noted on 2X2. cap refill < 3 seconds, good sensation, non tender to palpation and strong palpable pulse. No evidence of hematoma. Abdominal: NL Sounds; No Tenderness; No Distention Extremities: No Edema Skin: No Rash or Ulcers Neurological: Alert and Oriented x 3 Lines/Tubes/Other Access: Clean, Dry and Intact Peripheral IV Laboratory Results: 07/10/18 05:01 07/10/18 05:01 APTT 27.3 seconds (26.0-36.3) 07/10/18 05:01 Total Bilirubin 0.60 mg/dL (0.2-1.0) 07/08/18 11:42 AST 27 U/L (13-39) 07/08/18 11:42 ALT 15 U/L (7-52) 07/08/18 11:42 Alkaline Phosphatase 77 U/L (34-104) 07/08/18 11:42 CK-MB (CK-2) 5.8 ng/mL (0.6-6.3) 07/09/18 21:20 Total Protein 7.4 g/dL (6.4-8.9) 07/08/18 11:42 Albumin 4.2 g/dL (3.2-5.2) 07/08/18 11:42 Globulin 3.2 g/dL (2-4) 07/08/18 11:42 Albumin/Globulin Ratio 1.3 (1-3) 07/08/18 11:42 Triglycerides 61 mg/dL 07/09/18 06:02 Cholesterol 187 mg/dL 07/09/18 06:02 LDL Cholesterol 116 mg/dL 07/09/18 06:02 HDL Cholesterol 59.3 mg/dL 07/09/18 06:02 07/08/18 07/08/18 07/08/18 11:42 13:55 17:30 Troponin I 1.00 H* 0.93 H* 1.19 H* 07/08/18 07/08/18 07/09/18 20:36 23:28 02:27 Troponin I 1.51 H* 1.63 H* 1.78 H* 07/09/18 06:02 Troponin I 1.18 H* Laboratory Results - last 24 hr 07/09/18 07/09/18 07/09/18 11:42 14:08 21:20 WBC RBC Hgb Hct MCV MCH MCHC RDW Plt Count MPV Neut % (Auto) Lymph % (Auto) [place] % (Auto) Eos % (Auto) Baso % (Auto) Absolute Neuts (auto) Absolute Lymphs (auto) Absolute Monos (auto) Absolute Eos (auto) Absolute Basos (auto) Absolute Nucleated RBC Nucleated RBC % APTT POC Activ Clotting Time 156 Sodium Potassium Chloride Carbon Dioxide Anion Gap BUN Creatinine Est GFR ( Amer) Est GFR (Non-Af Amer) BUN/Creatinine Ratio Glucose Calcium CK-MB (CK-2) 4.0 5.8 07/10/18 07/10/18 07/10/18 05:01 05:01 05:01 WBC 6.3 RBC 4.67 Hgb 13.5 Hct 40 MCV 86 MCH 29 MCHC 34 RDW 14 Plt Count 136 L MPV 7.6 Neut % (Auto) 74.1 Lymph % (Auto) 14.4 [place] % (Auto) 8.7 Eos % (Auto) 2.2 Baso % (Auto) 0.6 Absolute Neuts (auto) 4.7 Absolute Lymphs (auto) 0.9 L Absolute Monos (auto) 0.5 Absolute Eos (auto) 0.1 Absolute Basos (auto) 0.0 Absolute Nucleated RBC 0.0 Nucleated RBC % 0.0 APTT 27.3 POC Activ Clotting Time Sodium 138 Potassium 4.0 Chloride 108 Carbon Dioxide 25 Anion Gap 5 BUN 16 Creatinine 1.14 H Est GFR ( Amer) 56.4 Est GFR (Non-Af Amer) 46.6 BUN/Creatinine Ratio 14.0 Glucose 97 Calcium 9.1 CK-MB (CK-2) Diagnostic Imaging: Echo 07/08/2018; LVEF 50-55% with hypokinesis of inferolateral region. mild TTA, mild MR, mild to moderate AI [facility] 07/09/2018; LM - no stenosis, LAD Proximal 50%, first Diag 70% small vessel size, 95% Proximal Lcx lesion, RCA dominant with mild disease. She had successful PTCA/ELO to proximal Lcx. EKG Data: Telemetry was reviewed. Occasional PVC, no VT. Sinus rhythm rates 70-80's EKG 07/10/2018; Sinus rhythm rate 83lateral St depression with TW inversion comparable to prior ECG. Assessment/Plan #1 NSTEMI; Troponin peaked at 1.78 on 07/09/2018. She presented to our practice with new lateral ST changes and c/o chst pain (heaviness) She is s/p successful PTCA/ELO to Proximal Lcx on 07/09/2018 with 3.9x20mm Synergy ELO. She will need to be on DAPT for a minimum of 12 months given presentation was PA. She should not leave the until to go home until she physically has the bottle of Brilinta with her. Script already sent to outpatient pharmacy here at [facility]. She is on Lipitor 40mg/day and Lopressor therapy. She is to f/u 07/17/[address] Ortiz. She is aware to not take more than ASA 81/day in combination of brilinta therapy. No driving or lifting > 10 lbs until she sees Dr. Ortiz on #2 HLD; Goal LDL < 70 given newly diagnosed CAD. On Lipitor 40mg Po QHS will need repeat FLP and LFT in 6-8 weeks time. #3 h/o HTN; BP 104/69. LVEF 50-55%. Will d/c HCTZ and Aldactone therapy. Continue Lopressor at 12.5mg PO BID, Losartan 25mg/day. She has newly diagnosed CAD and known TTA I would like to optimize Bblocker. She had relative bradycardia yesterday after proceedure HR in 40-50's that did resolve. She was given 25mg Lopressor. Lopressor held last night. will restart Lopressor at 12.5mg PO BID and monitor on telemetry to ensure HR remains stable. #4 Elevated Creat; Creat today 1.14. HCTZ and Aldactone was stopped. Will need outpatient BMP on 07/12/2018 to ensure creat remains stable. I'll place order in [facility]. She did receive 110cc visipaque #5 Disposition pending course. Monitor on telemetry this morning after Lopressor given to ensure bradycardia does not reoccur. Will d/w Dr. East. Attending: Lilia East <Lilia East - Last Filed: 07/10/18 12:18> Medications Active Medications: Acetaminophen (Tylenol Tab*) 650 mg PO Q6H PRN PRN Reason: pain/fever Aspirin (Aspirin Ec Tab*) 81 mg PO DAILY [facility] Last Admin: 07/10/18 08:23 Dose: 81 mg Atorvastatin Calcium (Lipitor*) 40 mg PO 2100 [facility] Last Admin: 07/09/18 20:44 Dose: 40 mg Calcium/Vitamin D (Oscal D Tab 250/125*) 1 tab PO DAILY [facility] Last Admin: 07/10/18 08:24 Dose: 1 tab Diazepam (Valium Tab(*)) 5 mg PO Q6H PRN PRN Reason: ANXIETY Last Admin: 07/09/18 10:59 Dose: 5 mg Heparin Sodium (Porcine) (Heparin Vial(*)) 0 - 3,650 units IV .SEE COMMENTS PRN PRN Reason: FOR SLIDING SCALE BOLUSING Iodixanol (Visipaque 320 (Contrast)) 100 ml IV ONCE [facility] Stop: 07/10/18 15:05 Losartan Potassium (Cozaar Tab*) 25 mg PO DAILY [facility] Last Admin: 07/10/18 08:24 Dose: 25 mg Metoprolol Tartrate (Lopressor Tab*) 12.5 mg PO Q12H [facility] Nitroglycerin (Nitroglycerin Tab 0.4 Mg*) 0.4 mg SL Q5M PRN PRN Reason: Chest pain Last Admin: 07/08/18 16:12 Dose: 0.4 mg Ticagrelor (Brilinta*) 90 mg PO BID [facility] Last Admin: 07/10/18 08:23 Dose: 90 mg Objective Vital Signs: Temp Pulse Resp BP Pulse Ox 97.9 F 69 22 117/60 96 07/10/18 11:54 07/10/18 12:00 07/10/18 12:00 07/10/18 12:00 07/10/18 12:00 Laboratory Results: 07/10/18 05:01 07/10/18 05:01 APTT 27.3 seconds (26.0-36.3) 07/10/18 05:01 Total Bilirubin 0.60 mg/dL (0.2-1.0) 07/08/18 11:42 AST 27 U/L (13-39) 07/08/18 11:42 ALT 15 U/L (7-52) 07/08/18 11:42 Alkaline Phosphatase 77 U/L (34-104) 07/08/18 11:42 CK-MB (CK-2) 5.8 ng/mL (0.6-6.3) 07/09/18 21:20 Total Protein 7.4 g/dL (6.4-8.9) 07/08/18 11:42 Albumin 4.2 g/dL (3.2-5.2) 07/08/18 11:42 Globulin 3.2 g/dL (2-4) 07/08/18 11:42 Albumin/Globulin Ratio 1.3 (1-3) 07/08/18 11:42 Triglycerides 61 mg/dL 07/09/18 06:02 Cholesterol 187 mg/dL 07/09/18 06:02 LDL Cholesterol 116 mg/dL 07/09/18 06:02 HDL Cholesterol 59.3 mg/dL 07/09/18 06:02 07/08/18 07/08/18 07/08/18 11:42 13:55 17:30 Troponin I 1.00 H* 0.93 H* 1.19 H* 07/08/18 07/08/18 07/09/18 20:36 23:28 02:27 Troponin I 1.51 H* 1.63 H* 1.78 H* 07/09/18 06:02 Troponin I 1.18 H* Assessment/Plan I saw the patient personally, no c/o or angina post stent to Cx coronary artery. New meds post stent include Brilinta, statin and metoprolol. d/c of HCTZ/aldactone noted. Outpatient f/u with Dr Ortiz and then with Dr Starks planned. I agree with the above recommendations and plans.
[2018-07-10] MEDS: Hydrochlorothiazide TAB* 25 MG PO SCH (08:23)
[2018-07-10] MEDS: Spironolactone TAB* 25 MG PO SCH (08:23)
[2018-07-10] MEDS: Ticagrelor* 90 MG TAB PO SCH (08:23)
[2018-07-10] MEDS: Aspirin EC TAB* 81 MG TAB.EC PO SCH (08:23)
[2018-07-10] MEDS: Calcium/Vitamin D TAB 250/125* TAB PO SCH (08:24)
[2018-07-10] MEDS: Losartan TAB* 25 MG PO SCH (08:24)
[2018-07-10] MEDS: Metoprolol Tartrate TAB* 25 MG PO SCH (08:38)
[2018-07-10] MEDS ORDERED: Metoprolol Tartrate TAB* 25 MG PO SCH ×2 (09:00→21:00)
--- NOTE | 2018-07-10 12:23 | PN ---
Subjective Date of Service: 07/10/18 Interval History: Ms. Keen denies complaint and is eager for discharge to home. She specifically denies chest pain or SOB. Objective Active Medications: Acetaminophen (Tylenol Tab*) 650 mg PO Q6H PRN Aspirin (Aspirin Ec Tab*) 81 mg PO DAILY [facility] Atorvastatin Calcium (Lipitor*) 40 mg PO 2100 [facility] Calcium/Vitamin D (Oscal D Tab 250/125*) 1 tab PO DAILY [facility] Diazepam (Valium Tab(*)) 5 mg PO Q6H PRN Heparin Sodium (Porcine) (Heparin Vial(*)) 0 - 3,650 units IV .SEE COMMENTS PRN Iodixanol (Visipaque 320 (Contrast)) 100 ml IV ONCE [facility] Losartan Potassium (Cozaar Tab*) 25 mg PO DAILY [facility] Metoprolol Tartrate (Lopressor Tab*) 12.5 mg PO Q12H [facility] Nitroglycerin (Nitroglycerin Tab 0.4 Mg*) 0.4 mg SL Q5M PRN Ticagrelor (Brilinta*) 90 mg PO BID [facility] Vital Signs: Temp Pulse Resp BP Pulse Ox 97.9 F 69 22 117/60 96 07/10/18 11:54 07/10/18 12:00 07/10/18 12:00 07/10/18 12:00 07/10/18 12:00 Oxygen Devices in Use Now: None Appearance: Female lying in bed in NAD Eyes: No Scleral Icterus Ears/Nose/Mouth/Throat: Mucous Membranes Moist Neck: Trachea Midline Respiratory: Symmetrical Chest Expansion and Respiratory Effort, Clear to Auscultation Cardiovascular: NL Sounds; No Murmurs; No JVD, No Edema Abdominal: NL Sounds; No Tenderness; No Distention Extremities: No Edema Skin: No Rash or Ulcers Neurological: Alert and Oriented x 3, NL Muscle Strength and Tone Nutrition: Taking PO's Result Diagrams: 07/10/18 05:01 07/10/18 05:01 Microbiology and Other Data: Microbiology 07/09/18 14:08 Nasal Screen MRSA (PCR) - Final Nasal Mrsa Not Detected Assess/Plan/Problems-Billing Assessment: Ms. Keen is a 73 yo F with a PMH of HTN, aortic aneurysm, anxiety who was admitted on 07/08/18 with chest pain and NSTEMI. - Patient Problems (1) NSTEMI (non-ST elevated myocardial infarction) Comment: - Now s/p stent to circ. - Appreciate cardiology consultation. - Continue aspirin, brilinta, atorvastatin, metoprolol (lowered dose due to bradycardia), and losartan. She will need to be on dual antiplatelet therapy for at least 12 months. -Follow up 07/17/[address] Wynne (2) Hypertension Comment: - SBP 110-130s - Continue metoprolol and losartan only (3) Aortic aneurysm Comment: - CTA chest/abd/pelvis found stable thoracic and abdominal aneurysms < 5.5cm. - Monitor per routine. (4) Creatinine elevation Comment: - Creatinine has creeped up to 1.14. Plan for recheck on 07/12. (5) Anxiety Comment: - Continue diazepam (6) Full code status Comment: Status and Disposition: Inpatient. Discharge to home.
[2018-07-10 13:52] VITALS: BP 126/69
--- NOTE | 2018-07-10 15:27 | DS ---
CC: Dr. Miguel; Dr. Starks * DISCHARGE SUMMARY: DATE OF ADMISSION: 07/08/18 DATE OF DISCHARGE: 07/10/18 PRIMARY CARE PROVIDER: Dr. Miguel. ATTENDING PHYSICIAN: Dr. Natasha Sommers * (dictation provided by Myrna Paredes NP ). PRIMARY DIAGNOSIS: Non ST-elevation myocardial infarction, status post cardiac drug-eluting stent to the proximal circumflex artery. SECONDARY DIAGNOSES: 1. History of hypertension. 2. History of thoracic and aortic aneurysms. 3. Anxiety. 4. [id number] aortic regurgitation. 5. Moderate mitral regurgitation. PAST SURGICAL HISTORY: 1. Status post hysterectomy and left oophorectomy. 2. History of a pneumothorax. MEDICATIONS AT THE TIME OF DISCHARGE: 1. [place] 3 fatty acid 1000 mg p.o. daily. 2. Esomeprazole 20 mg p.o. daily. 3. Diazepam 5 mg p.o. q.6 hours p.r.n. 4. Calcium with vitamin D one capsule p.o. daily. 5. Vitamin B complex one capsule p.o. daily. 6. Aspirin 81 mg p.o. daily. 7. Ticagrelor 90 mg p.o. b.i.d. 8. Nitroglycerin 0.4 mg sublingually q.5 minutes p.r.n. 9. Metoprolol tartrate 12.5 mg p.o. q.12 hours. 10. Losartan 25 mg p.o. daily. 11. Atorvastatin 40 mg p.o. daily. HOSPITAL COURSE: Ms. Keen is a 73-year-old female with past medical history of hypertension and thoracic aortic aneurysms, who presented to the hospital on 07/08/18 with concern for chest pain. Please see dictated H and P from Emi Jorge for complete details. In brief, the patient stated that she was in her usual health until 2 nights prior to admission she woke at 2:00 a.m. with retrosternal chest pain about 5/10. She took a Valium to try to relax and the pain subsided. Again, on the following night, she again had retrosternal chest pain described as severe, 10/10. Again, she took some Valium with some improvement. She also went to see Dr. Starks who is her buckle coverer and he recommended that she come immediately to the hospital for evaluation. In the emergency room, Ms. Keen had labs which showed a troponin of 1.00. She had a transthoracic echocardiogram which showed an ejection fraction of 50% to 55% with hypokinesis of the inferior lateral myocardium. She had a chest, abdomen and pelvis CTA that showed dilatation of the ascending thoracic aorta up to 3.9 cm transversally with spurring of the aortic root. There is no intimal flap to suggest dissection. Infrarenal abdominal aortic aneurysm measuring up to 3.2 cm in maximum transverse dimension, as well as aneurysmal dilatation of the right common iliac artery. This did not seem significantly changed from any previous imaging available for Ms. Keen. Her EKG at that time showed T-wave inversions in the precordial leads. She had a consultation with Dr. Patterson from Cardiology, who agreed with our plan for initiation of heparin drip and beta-blockers in the emergency room with likely plan for cardiac catheterization. Ms. Keen went on for cardiac catheterization with Dr. Ortiz on 07/09/18, at which time a drug-eluting stent was placed to her proximal circumflex artery, described as a 3.0 x 20 mm long Synergy drug-eluting stent. Ms. Keen has been well since her cardiac catheterization. She denies chest pain or shortness of breath. She was initially started on metoprolol 25 mg p.o. b.i.d., but with this had some relative bradycardia with heart rate running in 40s to 50s. Therefore, the metoprolol has been cut back to 12.5 mg p.o. b.i.d. and she has tolerated that well thus far. She will continue on losartan, but we have discontinued her spironolactone and hydrochlorothiazide. She is going to be discharged home with metoprolol and losartan. In addition, she will be on aspirin and Brilinta for at least 1 year. She is also on atorvastatin. Ms. Keen is medically stable for discharge to home. Her discharge instructions are outlined in detail with her activity instructions. She will be seeing Dr. Ortiz on 07/17/18. The only other thing noted during this hospitalization is that her creatinine was slightly elevated with 1.06 on arrival and today it was 1.14. We are recommending that she have a followup basic metabolic panel on 07/12/18 which can be followed by either the buckle coverer and/or Dr. Miguel. Ms. Keen is medically stable for discharge to home. DISPOSITION: Home. DIET: Low fat, low salt. ACTIVITY: Per the discharge instructions per routine of cardiac catheterization. FOLLOWUP PLANS: Please follow up with Dr. Miguel per routine of this hospitalization. Note is made again for slight elevated creatinine and followup plan for check on 07/12/18. Please follow up with Dr. Ortiz on . TIME SPENT: Approximately 60 minutes was spent on the discharge of this patient ; more than half of the time was spent with the patient at the bedside reviewing the events leading up to this hospitalization and during this hospitalization, performing the physical examination and reviewing my plan of care. MYRNA PAREDES NP [id number]/CPS #: [id number]
== END 2018-07-10 13:57 | disposition home or self-care (01) | DRG 247 ==
LOC: ED 11:18 → MEDTELE 13:21 → ICU 07-09 13:12
PROVIDERS: ADMIT Internal Medicine; ATTEND Hospitalist
PROC: B2111ZZ Fluoroscopy of Multiple Coronary Arteries using Low Osmolar Contrast (ICD-10-PCS; 2018-07-09)
PROC: 027034Z Dilation of Coronary Artery, One Artery with Drug-eluting Intraluminal Device, Percutaneous Approach (ICD-10-PCS; principal; 2018-07-09 10:30)
DX: I21.4 Non-ST elevation (NSTEMI) myocardial infarction (principal); I10 Essential (primary) hypertension; I25.10 Atherosclerotic heart disease of native coronary artery without angina pectoris; F41.9 Anxiety disorder, unspecified; I71.6 Thoracoabdominal aortic aneurysm, without rupture; I08.0 Rheumatic disorders of both mitral and aortic valves; R94.4 Abnormal results of kidney function studies; R00.1 Bradycardia, unspecified; T44.7X5A Adverse effect of beta-adrenoreceptor antagonists, initial encounter; Y92.239 Unspecified place in hospital as the place of occurrence of the external cause; Z88.8 Allergy status to other drugs, medicaments and biological substances; Z90.710 Acquired absence of both cervix and uterus; Z82.49 Family history of ischemic heart disease and other diseases of the circulatory system; Z83.3 Family history of diabetes mellitus; Z90.721 Acquired absence of ovaries, unilateral; Z79.82 Long term (current) use of aspirin; Z79.02 Long term (current) use of antithrombotics/antiplatelets
CPT/HCPCS: 36415; 71046; 71275; 74174; 76705; 80048; 80053; 80061; 81003; 82553; 83690; 84484; 85025; 85347; 85379; 85730; 87641; 93005; 93306; 93454; 99284; A9270-GY; C1725; C1769; C1887; C9600-LD; J0583; J1644; J2250; J3010; Q9967

== ENCOUNTER → 2018-07-15 18:52 | Emergency (ER) | payer MEDICARE, BC ==
--- OUTSIDE RECORDS SUMMARY | 2018-07-15 19:23 | XMS REPORT | Continuity of Care Document ---
:1945 External Reference #:[id number] Author Name Jigar Trinidad Care Team Providers Name Role Phone Vonnie Miguel MD Primary Care Physician Unavailable Payers Date Identification Numbers Payment Provider Subscriber Effective: 2009 Policy Number: [id number] Medicare Wandy Keen PayID: [id number] [address] [place] [address] Effective: 2014 Policy Number: [id number] [employer] Wandy Keen PayID: [id number] [address] [address] [place] [address] Effective: 2005 Policy Number: [id number] [facility] Expires: 2012 PayID: [id number] [address] [address] [place] [address] Problems Active Problems Provider Date Essential hypertension Alfredo Starks M.D. Onset: 03/30/2015 Aneurysm of thoracic aorta Alfredo Starks M.D. Onset: 03/20/2013 Aortic valve disorder Alfredo Starks M.D. Onset: 03/20/2013 Benign essential hypertension Alfredo Starks M.D. Onset: 06/12/2011 Mitral valve disorder Alfredo Starks M.D. 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 Unknown 1 Pack Daily Quit 23 years ago. ETOH Use 1 glass of wine or beer everyother night Tobacco Use Start: Unknown End: Patient is a former Unknown smoker Smoking Status Reviewed: 05/28/18 Patient is a former smoker Enjoy Exercising Enjoys exercising Exercise Type/Frequency Exercises regularly daily. Allergies, Adverse Reactions, Alerts Active Allergies Reaction Severity Comments Date Paxil felt poorly. 12/09/2008 Lexapro lethargy 12/09/2008 Inactive Allergies NKDA 06/16/2008 Medications Active Medications SIG Qnty Indications Ordering Date Provider Avapro 1 tab by 90taizzy Gaytan 07/20/2016 75mg Tablets mouth daily Vivien Starks Spironolactone 1/2 tab by 90taizzy Gaytan 06/25/2015 25mg Tablets mouth daily Vivien Starks Hydrochlorothiazide 1 by mouth 90pako Gaytan 04/04/2012 12.5mg by daily Vivien Starks Capsules Diazepam 1 po qd prn 60tabs Other Physician 06/16/2008 5mg Tablets Practices Asa 1 po qd 30units Unknown 81mg [place]-3 1 po qd. 30caps Unknown 1000mg Capsules Vitamin B 1 po qd 30tabs Unknown 50 Tablets Calcium 600 + D 1 po daily 60tabs Unknown [id number] Tablets Hair/Skin/Nails 1 by mouth Unknown Capsules daily History Medications Avapro take 1/2 tablet 90tabs Alfredo Gaytan 07/29/2015 - 150mg Tablets daily by mouth Vivien Starks 07/20/2016 Inspra 1 by mouth 30tabs I10 Alfredo Gaytan 06/25/2015 - 25mg Tablets every day Vivien Starks 06/25/2015 Diltiazem CD 1 by mouth 90caps Alfredo Gaytan 03/30/2015 - 120mg Caps ER 24HR every day Vivien Starks 08/17/2015 Avapro 1/2 tab by 90taizzy Gaytan 09/25/2012 - 300mg Tablets mouth every day Vivien Starks 07/29/2015 (reduced 07/30/15) Irbesartan/Hydrochlorothia 1/2 po bid Alfredo Gaytan 04/04/2012 - zide Vivien Starks 04/04/2012 300-12.5mg Tablets Irbesartan 1 po qd please 30tabs Nurse Visit cc 04/04/2012 - 300mg Tablets take in pm 09/25/2012 Irbesartan 1 po qd please 30tabs Alfredo Gaytan 03/27/2012 - 300mg Tablets take in pm Vivien Starks 04/04/2012 Avapro 1 po bid 200tabs Alfredo Gaytan 03/04/2012 - 150mg Tablets Vivien Starks 03/27/2012 Hydrochlorothiazide 1 po qd 90caps Alfredo Gaytan 03/04/2012 - 12.5mg Vivien Starks 04/04/2012 Capsules Compression Stockings calf high. 2Pair Alfredo Gaytan 06/10/2010 - Med apply to legs Vivien Starks 02/27/2013 [id number] qd Atenolol 1 po qd 180tabs Alfredo Gaytan 12/09/2008 - 25mg Tablets Vivien Starks 12/10/2008 Caltrate 600 1 po qd Other Physician 06/16/2008 - 1500mg Tablets Practices 06/10/2010 Centrum Silver 1 po qd Other Physician 06/16/2008 - Tablets Practices 05/25/2015 Alendronate Sodium 1 po weekly 4tabs Octavio Jenkins 06/16/2008 - 70mg Tablets Vivien Oconnell 03/04/2012 Tramadol HCL qd prn 30tabs Octavio Jenkins 06/16/2008 - 50mg Tablets Vivien Oconnell 12/09/2008 Desonide apply to 60G Other Physician 06/16/2008 - 0.05% Cream affected area Practices 03/11/2009 bid x 1-2 wks prn Xyzal 1 po qd prn 30tabs Other Physician 06/16/2008 - 5mg Tablets Practices 12/09/2008 Furosemide 1 po qam 90tabs Other Physician 06/16/2008 - 20mg Tablets Practices 12/09/2008 Lexapro 1 po qd Other Physician 06/16/2008 - 5mg Tablets Practices 12/09/2008 Diltiazem CD 1 po qd in am 90caps Other Physician 06/16/2008 - 180mg Caps ER 24HR Practices 03/30/2015 Avapro 1 po qd 90tabs Alfredo Gaytan - 300mg Tablets Vivien Starks 06/12/2011 Lyrica 1 po bid 60caps Unknown - 100mg Capsules 08/12/2009 Premarin 1 po qd Unknown - 0.625mg Tablets 05/25/2015 Lexapro 1/2 po qd 30tabs Unknown - 10mg Tablets 06/12/2011 Celexa 1 po qd Unknown - 20mg Tablets 06/26/2016 Nexium 1 po qd 90units Unknown - 20mg Packet 05/27/2018 Avalide 1 po qd 90tabs Unknown - 300-12.5mg Tablets 03/04/2012 Niaspan 1 po qd Unknown - 500mg Tablets 03/04/2012 Spironolactone 1 tablet daily Alfredo Kate - 25 Vivien Starks 06/25/2015 Celexa 1 by mouth Unknown - 10mg Tablets every day 07/10/2017 Centrum Silver 1 by mouth Unknown - Tablets every day 06/25/2018 Vital Signs Date Vital Result Comment 07/08/2018 10:07am Heart Rate 74 /min BP Systolic Sitting 132 mmHg BP Diastolic Sitting 90 mmHg BP Systolic Standing 130 mmHg BP Diastolic Standing 98 mmHg BP Systolic Lying Down 140 mmHg BP Diastolic Lying Down 90 mmHg Pain Level 0 06/26/2018 1:55pm Heart Rate 60 /min BP Systolic Sitting 112 mmHg Rue, reg cuff BP Diastolic Sitting 60 mmHg Rue, reg cuff BP Systolic Standing 106 mmHg Rue, reg cuff BP Diastolic Standing 60 mmHg Rue, reg cuff 05/28/2018 2:23pm Height 66 inches 5'6" Weight 134.75 lb with shoes Heart Rate 76 /min BP Systolic Sitting 128 mmHg lue reg cuff BP Diastolic Sitting 70 mmHg lue reg cuff BP Systolic Standing 130 mmHg lue reg cuff BP Diastolic Standing 70 mmHg lue reg cuff Respiratory Rate 16 /min BMI (Body Mass Index) 21.7 kg/m2 07/11/2017 3:29pm Height 66 inches 5'6" Weight 141.75 lb w/shoes Heart Rate 64 /min BP Systolic Sitting 110 mmHg L/A Reg Cuff BP Diastolic Sitting 64 mmHg L/A Reg Cuff BMI (Body Mass Index) 22.9 kg/m2 Ejection Fraction 60-65% echo 10/26/2015 06/27/2016 11:36am Height 66 inches 5'6" Weight 152.00 lb w/shoes Heart Rate 60 /min BP Systolic Sitting 108 mmHg LA reg cuff BP Diastolic Sitting 66 mmHg LA reg cuff BMI (Body Mass Index) 24.5 kg/m2 Ejection Fraction 60-65% Echo 10/26/15 10/29/2015 2:32pm Height 66 inches 5'6" Weight 155.00 lb w/ shoes Heart Rate 66 /min reg BP Systolic Sitting 110 mmHg Lue, reg cuff BP Diastolic Sitting 76 mmHg Lue, reg cuff BP Systolic Standing 104 mmHg Lue BP Diastolic Standing 76 mmHg Lue Respiratory Rate 16 /min BMI (Body Mass Index) 25.0 kg/m2 Ejection Fraction 60-65% as of 10/26/15 echo 09/30/2015 9:30am Height 66 inches 5'6" Weight 155.00 lb with shoes Heart Rate 58 /min BP Systolic 160 mmHg LA home cuff BP Diastolic 90 mmHg LA home cuff BP Systolic Sitting 160 mmHg LA reg cuff BP Diastolic Sitting 86 mmHg LA reg cuff BMI (Body Mass Index) 25.0 kg/m2 Ejection Fraction 55% - 60% echo 06/12/14 08/17/2015 11:05am Height 66 inches 5'6" Weight 155.00 lb with shoes Heart Rate 52 /min BP Systolic Sitting 90 mmHg LA reg cuff BP Diastolic Sitting 70 mmHg LA reg cuff BP Systolic Standing 92 mmHg LA reg cuff BP Diastolic Standing 70 mmHg LA reg cuff Respiratory Rate 15 /min BMI (Body Mass Index) 25.0 kg/m2 Ejection Fraction 55-60% 06/12/14 07/29/2015 1:17pm Height 66 inches 5'6" Weight 154.00 lb Heart Rate 56 /min BP Systolic Sitting 98 mmHg Ra reg cuff BP Diastolic Sitting 64 mmHg Ra reg cuff BP Systolic Standing 92 mmHg Ra BP Diastolic Standing 62 mmHg Ra Respiratory Rate 16 /min BMI (Body Mass Index) 24.9 kg/m2 Ejection Fraction 55-60% 06/12/14 06/25/2015 9:25am Height 66 inches 5'6" Weight 157.00 lb w/o shoes Heart Rate 52 /min reg BP Systolic Sitting 142 mmHg Lue, reg cuff BP Diastolic Sitting 98 mmHg Lue, reg cuff BP Systolic Standing 140 mmHg Lue BP Diastolic Standing 90 mmHg Lue Respiratory Rate 16 /min BMI (Body Mass Index) 25.3 kg/m2 Ejection Fraction 55-60% As of 06/12/14 echo 03/30/2015 2:16pm Height 66 inches 5'6" Weight 158.00 lb no shoes Heart Rate 56 /min BP Systolic Sitting 112 mmHg LA reg cuff BP Diastolic Sitting 66 mmHg LA reg cuff BP Systolic Standing 108 mmHg LA reg cuff BP Diastolic Standing 68 mmHg LA reg cuff Respiratory Rate 14 /min BMI (Body Mass Index) 25.5 kg/m2 Ejection Fraction 55-60 % 06/12/14 03/24/2014 1:48pm Height 66 inches 5'6" Weight 160.50 lb Heart Rate 54 /min BP Systolic Sitting 110 mmHg LA, reg BP Diastolic Sitting 78 mmHg LA, reg BMI (Body Mass Index) 25.9 kg/m2 03/20/2013 2:00pm Height 66 inches 5'6" Weight 154.00 lb Heart Rate 54 /min BP Systolic Sitting 112 mmHg left arm, reg cuff BP Diastolic Sitting 66 mmHg left arm, reg cuff Respiratory Rate 16 /min BMI (Body Mass Index) 24.9 kg/m2 05/16/2012 3:11pm Height 66 inches 5'6" Weight 154.00 lb Heart Rate 60 /min BP Systolic Sitting 128 mmHg BP Diastolic Sitting 80 mmHg BMI (Body Mass Index) 24.9 kg/m2 03/04/2012 4:21pm Height 66 inches 5'6" Weight 153.00 lb Heart Rate 50 /min BP Systolic 130 mmHg BP Diastolic 80 mmHg Respiratory Rate 16 /min BMI (Body Mass Index) 24.7 kg/m2 06/12/2011 1:45pm Height 66 inches 5'6" Weight 147.00 lb Heart Rate 52 /min BP Systolic 132 mmHg BP Diastolic 80 mmHg Respiratory Rate 16 /min BMI (Body Mass Index) 23.7 kg/m2 06/10/2010 1:43pm Height 66 inches 5'6" Weight 146.00 lb Heart Rate 56 /min BP Systolic Sitting 134 mmHg BP Diastolic Sitting 78 mmHg BMI (Body Mass Index) 23.6 kg/m2 08/12/2009 2:07pm Height 66 inches 5'6" Weight 143.00 lb Heart Rate 72 /min BP Systolic Sitting 132 mmHg BP Diastolic Sitting 80 mmHg BMI (Body Mass Index) 23.1 kg/m2 03/11/2009 1:52pm Height 66 inches 5'6" Weight 145.00 lb Heart Rate 48 /min BP Systolic Sitting 120 mmHg BP Diastolic Sitting 80 mmHg BMI (Body Mass Index) 23.4 kg/m2 12/09/2008 1:08pm Height 66 inches 5'6" Weight 144.00 lb Heart Rate 57 /min BP Systolic Sitting 140 mmHg BP Diastolic Sitting 95 mmHg Respiratory Rate 16 /min BMI (Body Mass Index) 23.2 kg/m2 Results Test Date Facility Test Result H/L Range Note Basic Metabolic 05/28/2018 [facility] Sodium 142 mmol/L N 135- 145 Panel [address] [place] [address] [phone] Potassium 4.1 mmol/L N 3.5-5.0 Chloride 106 mmol/L N 101-111 Co2 Carbon Dioxide 33 mmol/L High 22-32 Anion Gap 3 mmol/L N 2-11 Glucose 91 mg/dL N 70-100 Blood Urea Nitrogen 20 mg/dL N 6-24 Creatinine 0.93 mg/dL N 0.51-0.95 BUN/Creatinine Ratio 21.5 High 8-20 Calcium 9.4 mg/dL N 8.6-10.3 Egfr Non- 58.9 >60 Egfr 71.3 >60 1 Laboratory test 05/20/2012 [facility] Blood Urea 16 mg/dL 6- [address] [address] [phone] Creatinine 05/20/2012 [facility] Creatinine 1.00 mg/dL 0.50- 1.[address] [place] [address] [phone] Egfr Non- 55.1 >60 Egfr 70.9 >60 2 Laboratory test 06/23/2011 [facility] TSH 1.07 MIU/ML 0.34- 5.60 finding [address] [place] [address] [phone] CBC No Diff 06/23/2011 [facility] White Blood 8.6 CUMM 4.8- 10.8 [address] [facility] [address] [phone] Red Cell Count 4.53 CUMM 4.2-5.4 Hemoglobin 13.8 g/dL 12.0-16.0 Hematocrit 40 % 35-47 Mean Corpuscular Volume 89 um3 79-97 Mean Corpuscular Hemoglob 31 pg 27-31 Mean Corpuscular HGB Cone 34 g/dL 32-36 Redcell Distribution WDTH 13 % 10.5-15 Platelet Count 218 CUMM 150-450 Mean Platelet Volume 8.4 um3 7.4-10.4 Creatinine 06/20/2011 [facility] Creatinine 1.0 mg/dL 0.50- 1.40 [address] [place] [address] [phone] One Over Creatinine 1.00 eGFR Non- 55.3 > 60 eGFR 71.1 > 60 3 Laboratory test finding 06/20/2011 [facility] BUN 18 mg/dL 6- 24 [address] [place] [address] [phone] 1 Because ethnic data is not always readily available, this report includes an eGFR for both -Americans and non- Americans. The National Kidney Disease Education Program (NKDEP) does not endorse the use of the MDRD equation for patients that are not between the ages of 18 and 70, are , have extremes of body size, muscle mass, or nutritional status, or are non- or non-. According to the National Kidney Foundation, irrespective of diagnosis, the stage of the disease is based on the level of kidney function: Stage Description GFR(mL/min/1.73 m(2)) 1 Kidney damage with normal or decreased GFR 90 2 Kidney damage with mild decrease in GFR 60-89 3 Moderate decrease in GFR 30-59 4 Severe decrease in GFR 15-29 5 Kidney failure <15 (or dialysis) 2 Because ethnic data is not always readily available, this report includes an eGFR for both -Americans and non- Americans. The National Kidney Disease Education Program (NKDEP) does not endorse the use of the MDRD equation for patients that are not between the ages of 18 and 70, are , have extremes of body size, muscle mass, or nutritional status, or are non- or non-. According to the National Kidney Foundation, irrespective of diagnosis, the stage of the disease is based on the level of kidney function: Stage Description GFR(mL/min/1.73 m(2)) 1 Kidney damage with normal or decreased GFR 90 2 Kidney damage with mild decrease in GFR 60-89 3 Moderate decrease in GFR 30-59 4 Severe decrease in GFR 15-29 5 Kidney failure <15 (or dialysis) 3 Because ethnic data is not always readily available, this report includes an eGFR for both -Americans and non- Americans. The National Kidney Disease Education Program (NKDEP) does not endorse the use of the MDRD equation for patients that are not between the ages of 18 and 70, are , have extremes of body size, muscle mass, or nutritional status, or are non- or non-. According to the National Kidney Foundation, irrespective of diagnosis, the stage of the disease is based on the level of kidney function: Stage Description GFR(mL/min/1.73 m(2)) 1 Kidney damage with normal or decreased GFR 90 2 Kidney damage with mild decrease in GFR 60-89 3 Moderate decrease in GFR 30-59 4 Severe decrease in GFR 15-29 5 Kidney failure <15 (or dialysis) Procedures Date Code Description Status 07/08/2018 13573 EKG Tracing & Interpretation Completed 05/28/2018 93970 EKG Tracing & Interpretation Completed 07/11/2017 73033 EKG Tracing & Interpretation Completed 06/27/2016 17173 EKG Tracing & Interpretation Completed 10/26/2015 55861 ECHO Transthoracic, Real-Time 2D With Doppler And Color Completed Flow 09/30/2015 40463 EKG Tracing & Interpretation Completed 03/30/2015 54986 EKG Tracing & Interpretation Completed 06/12/2014 96659 ECHO Transthoracic, Real-Time 2D With Doppler And Color Completed Flow 03/24/2014 61702 EKG Tracing & Interpretation Completed 03/20/2013 80481 EKG Tracing & Interpretation Completed 05/16/2012 57500 EKG Tracing & Interpretation Completed 05/02/2012 34004 ECHO Transthoracic, Real-Time 2D With Doppler And Color Completed Flow 03/04/2012 10420 EKG Tracing & Interpretation Completed 06/12/2011 78613 EKG Tracing & Interpretation Completed 06/10/2010 05446 EKG Tracing & Interpretation Completed 08/12/2009 98176 EKG Tracing & Interpretation Completed 03/11/2009 79120 EKG Tracing & Interpretation Completed 03/05/2009 83030 ECHO Transthoracic, Real-Time 2D With Doppler And Color Completed Flow 12/09/2008 52547 EKG Tracing & Interpretation Completed Encounters Type Date Location Provider Dx Diagnosis Office Visit 06/26/2018 [facility] Nurse Visit IC I10 Essential ( primary) 1:30p Of [employer] hypertension Office Visit 05/28/2018 [facility] Breana Jacksno, I71.2 Thoracic aortic 2:30p Of [facility] aneurysm, without rupture I10 Essential (primary) hypertension I34.0 Nonrheumatic mitral (valve) insufficiency E78.00 Pure hypercholesterolemia, unspecified R00.1 Bradycardia, unspecified Office Visit 07/11/2017 3:40p [facility] Alfredo Gaytan I71.2 Thoracic aortic Vivien Starks aneurysm, without rupture I10 Essential (primary) hypertension I34.0 Nonrheumatic mitral (valve) insufficiency E78.00 Pure hypercholesterolemia, unspecified Office Visit 06/27/2016 11:40a [facility] Alfredo Gaytan I71.2 Thoracic aortic Vivien Starks aneurysm, without rupture R00.1 Bradycardia, unspecified I10 Essential (primary) hypertension I34.0 Nonrheumatic mitral (valve) insufficiency Office Visit 10/29/2015 2:30p [facility] CATARINA Rosenthal I71.2 Thoracic aortic Of [employer] aneurysm, without rupture R00.1 Bradycardia, unspecified I10 Essential (primary) hypertension I34.0 Nonrheumatic mitral (valve) insufficiency I35.1 Nonrheumatic aortic (valve) insufficiency Office Visit 09/30/2015 9:20a [facility] Alfredo Gaytan R00.1 Bradycardia, Vivien Starks unspecified I10 Essential (primary) hypertension I71.2 Thoracic aortic aneurysm, without rupture I34.0 Nonrheumatic mitral (valve) insufficiency I35.1 Nonrheumatic aortic (valve) insufficiency Office Visit 08/17/2015 11:00a [facility] Rubi Mayo, I10 Essential (primary) Of [employer] [place] hypertension R00.1 Bradycardia, unspecified I71.2 Thoracic aortic aneurysm, without rupture Office Visit 07/29/2015 1:30p [facility] Rubi Mayo, I35.0 Nonrheumatic aortic Of [employer] [place] (valve) stenosis I34.1 Nonrheumatic mitral (valve) prolapse I71.2 Thoracic aortic aneurysm, without rupture I10 Essential (primary) hypertension Office Visit 06/25/2015 9:45a [facility] Rubi Mayo, I35.0 Nonrheumatic aortic Of [employer] [place] (valve) stenosis I34.1 Nonrheumatic mitral (valve) prolapse I71.2 Thoracic aortic aneurysm, without rupture R00.1 Bradycardia, unspecified I10 Essential (primary) hypertension Office Visit 03/30/2015 2:00p [facility] Alfredo Gaytan I35.0 Nonrheumatic Of [employer] Vivien Starks aortic (valve) stenosis I34.1 Nonrheumatic mitral (valve) prolapse I71.2 Thoracic aortic aneurysm, without rupture I10 Essential (primary) hypertension R00.1 Bradycardia, unspecified Office Visit 03/24/2014 1:40p [facility] Alfredo Gaytan 424.1 Aortic Valve Vivien Starks Disorder 424.0 Mitral Valve Disorder 441.2 Aneurysm Thoracic W/O Rupture 401.1 Hypertension Benign Office Visit 03/20/2013 2:00p [facility] Alfredo Gaytan 424.0 Mitral Valve Vivien Starks Disorder 424.1 Aortic Valve Disorder 441.2 Aneurysm Thoracic W/O Rupture 427.0 PSVT Paroxysmal Supraventricular Tachycardia 401.1 Hypertension Benign Office Visit 05/16/2012 3:20p [facility] Alfredo Gaytan 441.2 Aneurysm Vivien Starks Thoracic W/O Rupture 424.0 Mitral Valve Disorder 424.1 Aortic Valve Disorder Office Visit 04/04/2012 3:00p [facility] Nurse Visit cc 401.1 Hypertension Benign Office Visit 03/04/2012 4:00p [facility] Alfredo Gaytan 424.0 Mitral Valve Vivien Starks Disorder 401.1 Hypertension Benign 427.0 PSVT Paroxysmal Supraventricular Tachycardia 441.2 Aneurysm Thoracic W/O Rupture Office Visit 06/12/2011 1:40p [facility] Alfredo Gaytan 424.0 Mitral Valve Vivien Starks Disorder 401.1 Hypertension Benign 427.0 PSVT Paroxysmal Supraventricular Tachycardia 441.2 Aneurysm Thoracic W/O Rupture Office Visit 06/10/2010 2:00p [facility] Alfredo Gaytan 401.1 Hypertension Vivien Starks Benign 424.0 Mitral Valve Disorder Office Visit 09/17/2009 10:00a [facility] Nurse Visit cc 401.1 Hypertension Benign Office Visit 08/12/2009 2:00p [facility] Alfredo Gaytan 401.1 Hypertension Vivien Starks Benign Office Visit 03/11/2009 2:00p [facility] Alfredo Gaytan 401.1 Ran Starks M.D. Benign 441.21 Aortic Aneurysm Thoracic Office Visit 12/09/2008 1:40p [facility] Alfredo Gaytan 401.1 Hypertension Vivien Starks Benign 424.0 Mitral Valve Disorder 441.21 Aortic Aneurysm Thoracic Office Visit 06/16/2008 2:30p [facility] Assayleen Jenkins 786.50 Pain Chest AT Jabari Oconnell M.D. Unspec [place]agle 401.1 Hypertension Benign Plan of Treatment Future Appointment(s):07/17/2018 3:20 pm - Luis F Ortiz M.D., [facility], [facility] at [facility] AT [facility]08/08/2018 1:30 pm - Breana Jackson N.P. at [facility]07/08/2018 - Nurse Visit ICR07.9 Chest pain, unspecified
--- OUTSIDE RECORDS SUMMARY | 2018-07-15 19:24 | XMS REPORT | Continuity of Care Document ---
:1945 External Reference #:[id number] Author Name Jigar Trinidad Care Team Providers Name Role Phone Vonnie Miguel MD Primary Care Physician Unavailable Payers Date Identification Numbers Payment Provider Subscriber Effective: 2009 Policy Number: [id number] Medicare Wandy Keen PayID: [id number] [address] [place] [address] Effective: 2014 Policy Number: [id number] BS Facets Wandy Keen PayID: [id number] [address] [address] [place] [address] Effective: 2005 Policy Number: [id number] [facility] Expires: 2012 PayID: [id number] [address] [address] [place] [address] Problems Active Problems Provider Date Essential hypertension Alfredo Starks M.D. Onset: 03/30/2015 Aneurysm of thoracic aorta Alfredo Starks M.D. Onset: 03/20/2013 Aortic valve disorder Alfredo Starks M.D. Onset: 03/20/2013 Benign essential hypertension Alfredo Starks M.D. Onset: 06/12/2011 Mitral valve disorder Alfredo Starks M.D. 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 30caps Unknown 1000mg Capsules Vitamin B 1 po qd 30tabs Unknown 50 Tablets Calcium 600 + D 1 po daily 60tabs Unknown [id number] Tablets Hair/Skin/Nails 1 by mouth Unknown Capsules [...] Med apply to legs Vivien Starks 02/27/2013 [id number] qd Atenolol 1 po qd 180tabs Alfredo [...] Result H/L Range Note Basic Metabolic 05/28/2018 [facility] Sodium 142 mmol/L N 135- 145 Panel [address] [place] [address] [phone] Potassium 4.1 mmol/L N 3.5-5.0 Chloride 106 mmol/L N 101-111 Co2 Carbon Dioxide 33 mmol/L High 22-32 Anion Gap 3 mmol/L N 2-11 Glucose 91 mg/dL N 70-100 Blood Urea Nitrogen 20 mg/dL N 6-24 Creatinine 0.93 mg/dL N 0.51-0.95 BUN/Creatinine Ratio 21.5 High 8-20 Calcium 9.4 mg/dL N 8.6-10.3 Egfr Non- 58.9 >60 Egfr 71.3 >60 1 Laboratory test 05/20/2012 [facility] Blood Urea 16 mg/dL 6- [address] [place] [address] [phone] Creatinine 05/20/2012 [facility] Creatinine 1.00 mg/dL 0.50- 1.[address] [place] [address] [phone] Egfr Non- 55.1 >60 Egfr 70.9 >60 2 Laboratory test 06/23/2011 [facility] TSH 1.07 MIU/ML 0.34- 5.60 finding [address] [place] [address] [phone] CBC No Diff 06/23/2011 [facility] White Blood 8.6 CUMM 4.8- 10.8 [address] [facility] [place] [address] [phone] Red Cell Count 4.53 CUMM 4.2-5.4 Hemoglobin 13.8 g/dL 12.0-16.0 Hematocrit 40 % 35-47 Mean Corpuscular Volume 89 um3 79-97 Mean Corpuscular Hemoglob 31 pg 27-31 Mean Corpuscular HGB Cone 34 g/dL 32-36 Redcell Distribution WDTH 13 % 10.5-15 Platelet Count 218 CUMM 150-450 Mean Platelet Volume 8.4 um3 7.4-10.4 Creatinine 06/20/2011 [facility] Creatinine 1.0 mg/dL 0.50- 1.40 [address] [place] [address] [phone] One Over Creatinine 1.00 eGFR Non- 55.3 > 60 eGFR 71.1 > 60 3 Laboratory test finding 06/20/2011 [facility] BUN 18 mg/dL 6- 24 [address] [place] [address] [phone] 1 Because ethnic data is not always [...] dialysis) Procedures Date Code Description Status 07/08/2018 17694 EKG Tracing & Interpretation Completed 05/28/2018 79493 EKG Tracing & Interpretation Completed 07/11/2017 56445 EKG Tracing & Interpretation Completed 06/27/2016 94667 EKG Tracing & Interpretation Completed 10/26/2015 52851 ECHO Transthoracic, Real-Time 2D With Doppler And Color Completed Flow 09/30/2015 12115 EKG Tracing & Interpretation Completed 03/30/2015 56444 EKG Tracing & Interpretation Completed 06/12/2014 16561 ECHO Transthoracic, Real-Time 2D With Doppler And Color Completed Flow 03/24/2014 10546 EKG Tracing & Interpretation Completed 03/20/2013 37246 EKG Tracing & Interpretation Completed 05/16/2012 20756 EKG Tracing & Interpretation Completed 05/02/2012 85342 ECHO Transthoracic, Real-Time 2D With Doppler And Color Completed Flow 03/04/2012 75068 EKG Tracing & Interpretation Completed 06/12/2011 03450 EKG Tracing & Interpretation Completed 06/10/2010 47214 EKG Tracing & Interpretation Completed 08/12/2009 11273 EKG Tracing & Interpretation Completed 03/11/2009 89097 EKG Tracing & Interpretation Completed 03/05/2009 00455 ECHO Transthoracic, Real-Time 2D With Doppler And Color Completed Flow 12/09/2008 10810 EKG Tracing & Interpretation Completed Encounters Type Date Location Provider Dx Diagnosis Office Visit 06/26/2018 [facility] Nurse Visit IC I10 Essential ( primary) 1:30p Of Restaurant Hospitality Manager hypertension Office Visit 05/28/2018 [facility] Breana Jackson, I71.2 Thoracic aortic 2:30p Of [facility] aneurysm, without rupture I10 Essential (primary) hypertension I34.0 Nonrheumatic mitral (valve) insufficiency E78.00 Pure hypercholesterolemia, unspecified R00.1 Bradycardia, unspecified Office Visit 07/11/2017 3:40p [facility] Alfredo Gaytan I71.2 Thoracic aortic Vivien Starks aneurysm, without rupture I10 Essential (primary) hypertension I34.0 Nonrheumatic mitral (valve) insufficiency E78.00 Pure hypercholesterolemia, unspecified Office Visit 06/27/2016 11:40a [facility] Alfredo Gaytan I71.2 Thoracic aortic Vivien Starks aneurysm, without rupture R00.1 Bradycardia, unspecified I10 Essential (primary) hypertension I34.0 Nonrheumatic mitral (valve) insufficiency Office Visit 10/29/2015 2:30p [facility] CATARINA Rosenthal I71.2 Thoracic aortic Of Restaurant Hospitality Manager aneurysm, without rupture R00.1 Bradycardia, unspecified I10 Essential (primary) hypertension I34.0 Nonrheumatic mitral (valve) insufficiency I35.1 Nonrheumatic aortic (valve) insufficiency Office Visit 09/30/2015 9:20a [facility] Alfredo Gaytan R00.1 Bradycardia, Vivien Starks unspecified I10 Essential (primary) hypertension I71.2 Thoracic aortic aneurysm, without rupture I34.0 Nonrheumatic mitral (valve) insufficiency I35.1 Nonrheumatic aortic (valve) insufficiency Office Visit 08/17/2015 11:00a [facility] Rubi Mayo, I10 Essential (primary) Of Restaurant Hospitality Manager [place] hypertension R00.1 Bradycardia, unspecified I71.2 Thoracic aortic aneurysm, without rupture Office Visit 07/29/2015 1:30p [facility] Rubi Mayo, I35.0 Nonrheumatic aortic Of Restaurant Hospitality Manager [place] (valve) stenosis I34.1 Nonrheumatic mitral (valve) prolapse I71.2 Thoracic aortic aneurysm, without rupture I10 Essential (primary) hypertension Office Visit 06/25/2015 9:45a [facility] Rubi Mayo, I35.0 Nonrheumatic aortic Of Restaurant Hospitality Manager [place] (valve) stenosis I34.1 Nonrheumatic mitral (valve) prolapse I71.2 Thoracic aortic aneurysm, without rupture R00.1 Bradycardia, unspecified I10 Essential (primary) hypertension Office Visit 03/30/2015 2:00p [facility] Alfredo Gaytan I35.0 Nonrheumatic Of Restaurant Hospitality Manager Vivien Starks aortic (valve) stenosis I34.1 Nonrheumatic mitral (valve) prolapse I71.2 Thoracic aortic aneurysm, without rupture I10 Essential (primary) hypertension R00.1 Bradycardia, unspecified Office Visit 03/24/2014 1:40p [facility] Alfredo Gaytan 424.1 Aortic Valve Vivien Starks Disorder 424.0 Mitral Valve Disorder 441.2 Aneurysm Thoracic W/O Rupture 401.1 Hypertension Benign Office Visit 03/20/2013 2:00p [facility] Alfredo Gaytan 424.0 Mitral Valve Vivien Starks Disorder 424.1 Aortic Valve Disorder 441.2 Aneurysm Thoracic W/O Rupture 427.0 PSVT Paroxysmal Supraventricular Tachycardia 401.1 Hypertension Benign Office Visit 05/16/2012 3:20p [facility] Alfredo Gaytan 441.2 Aneurysm Vivien Starks Thoracic W/O Rupture 424.0 Mitral Valve Disorder 424.1 Aortic Valve Disorder Office Visit 04/04/2012 3:00p [facility] Nurse Visit cc 401.1 Hypertension Benign Office Visit 03/04/2012 4:00p [facility] Alfredo Gaytan 424.0 Mitral Valve Vivien Starks Disorder 401.1 Hypertension Benign 427.0 PSVT Paroxysmal Supraventricular Tachycardia 441.2 Aneurysm Thoracic W/O Rupture Office Visit 06/12/2011 1:40p [facility] Alfredo Gaytan 424.0 Mitral Valve Vivien Starks Disorder 401.1 Hypertension Benign 427.0 PSVT Paroxysmal Supraventricular Tachycardia 441.2 Aneurysm Thoracic W/O Rupture Office Visit 06/10/2010 2:00p [facility] Alfredo Gaytan 401.1 Hypertension Vivien Starks Benign 424.0 Mitral Valve Disorder Office Visit 09/17/2009 10:00a [facility] Nurse Visit cc 401.1 Hypertension Benign Office Visit 08/12/2009 2:00p [facility] Alfredo Gaytan 401.1 Hypertension Vivien Starks Benign Office Visit 03/11/2009 2:00p [facility] Alfredo Gaytan 401.1 Ran Starks M.D. Benign 441.21 Aortic Aneurysm Thoracic Office Visit 12/09/2008 1:40p [facility] Alfredo Gaytan 401.1 Hypertension Vivien Starks Benign 424.0 Mitral Valve Disorder 441.21 Aortic Aneurysm Thoracic Office Visit 06/16/2008 2:30p [facility] Assayleen Jenkins 786.50 Pain Chest AT Jabari Oconnell M.D. Unspec [place] 401.1 Hypertension Benign Plan of Treatment Future Appointment(s):07/17/2018 3:20 pm - Luis F Ortiz M.D., [facility] at [facility] AT [facility]08/08/2018 1:30 pm - Breana Jackson N.P. at [facility]07/08/2018 - Nurse Visit ICR07.9 Chest pain, unspecified
--- OUTSIDE RECORDS SUMMARY | 2018-07-15 19:24 | XMS REPORT | Continuity of Care Document ---
:1945 External Reference #:[id number] Author Name Jigar Trinidad Care Team Providers Name Role Phone Vonnie Miguel MD Primary Care Physician Unavailable Payers Date Identification Numbers Payment Provider Subscriber Effective: 2009 Policy Number: [id number] Medicare Wandy Keen PayID: [id number] [address] [place] [address] Effective: 2014 Policy Number: [id number] [employer] Wandy Keen PayID: [id number] [address] [address] [place] [address] Effective: 2005 Policy Number: [id number] [facility]en Expires: 2012 PayID: [id number] [address] [address] [place] [address] Advance Directives Description No Information Available Problems Active Problems Provider Date Essential hypertension Alfredo Starks M.D. Onset: 03/30/2015 Aneurysm of thoracic aorta Alfredo Starks M.D. Onset: 03/20/2013 Aortic valve disorder Alfredo Starks M.D. Onset: 03/20/2013 Benign essential hypertension Alfredo Starks M.D. Onset: 06/12/2011 Mitral valve disorder Alfredo Starks M.D. 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 30caps Unknown 1000mg Capsules Vitamin B 1 po qd 30tabs Unknown 50 Tablets Calcium 600 + D 1 po daily 60tabs Unknown [id number] Tablets Hair/Skin/Nails 1 by mouth Unknown Capsules [...] Vivien Starks 04/04/2012 Avapro 1 po bid 200taizzy Gaytan 03/04/2012 - 150mg Tablets Vivien Starks 03/27/2012 Hydrochlorothiazide 1 po qd 90caps Alfredo Gaytan 03/04/2012 - 12.5mg Vivien Starks 04/04/2012 Capsules Compression Stockings calf high. 2Pair Alfredo Gaytan 06/10/2010 - Med apply to legs Vivien Starks 02/27/2013 [id number] qd Atenolol 1 po qd 180tabs Alfredo [...] Tablets 03/04/2012 Spironolactone 1 tablet daily Alfredo Gaytan - 25 Vivien Starks 06/25/2015 Celexa 1 by mouth Unknown - 10mg Tablets every day 07/10/2017 Centrum Silver 1 by mouth Unknown - Tablets every day 06/25/2018 Immunizations Description No Information Available Vital Signs Date Vital Result Comment 07/08/2018 [...] Result H/L Range Note Basic Metabolic 05/28/2018 [facility] Sodium 142 mmol/L N 135- [address] [place] [address] [phone] Potassium 4.1 mmol/L N 3.5-5.0 Chloride 106 mmol/L N 101-111 Co2 Carbon Dioxide 33 mmol/L High 22-32 Anion Gap 3 mmol/L N 2-11 Glucose 91 mg/dL N 70-100 Blood Urea Nitrogen 20 mg/dL N 6-24 Creatinine 0.93 mg/dL N 0.51-0.95 BUN/Creatinine Ratio 21.5 High 8-20 Calcium 9.4 mg/dL N 8.6-10.3 Egfr Non- 58.9 >60 Egfr 71.3 >60 1 Laboratory test 05/20/2012 [facility] Blood Urea 16 mg/dL 6- [address] [place] [address] [phone] Creatinine 05/20/2012 [facility] Creatinine 1.00 mg/dL 0.50- 1.[address] [place] [address] [phone] Egfr Non- 55.1 >60 Egfr 70.9 >60 2 Laboratory test 06/23/2011 [facility] TSH 1.07 MIU/ML 0.34- 5.60 finding [address] [place] [address] [phone] CBC No Diff 06/23/2011 [facility] White Blood 8.6 CUMM 4.8- 10.[address] [place] [address] [phone] Red Cell Count 4.53 CUMM 4.2-5.4 Hemoglobin 13.8 g/dL 12.0-16.0 Hematocrit 40 % 35-47 Mean Corpuscular Volume 89 um3 79-97 Mean Corpuscular Hemoglob 31 pg 27-31 Mean Corpuscular HGB Cone 34 g/dL 32-36 Redcell Distribution WDTH 13 % 10.5-15 Platelet Count 218 CUMM 150-450 Mean Platelet Volume 8.4 um3 7.4-10.4 Creatinine 06/20/2011 [facility] Creatinine 1.0 mg/dL 0.50- 1.40 [address] [place] [address] [phone] One Over Creatinine 1.00 eGFR Non- 55.3 > 60 eGFR 71.1 > 60 3 Laboratory test finding 06/20/2011 [facility] BUN 18 mg/dL 6- 24 [address] [place] [address] [phone] 1 Because ethnic data is not always [...] dialysis) Procedures Date Code Description Status 07/08/2018 29474 EKG Tracing & Interpretation Completed 05/28/2018 09091 EKG Tracing & Interpretation Completed 07/11/2017 07959 EKG Tracing & Interpretation Completed 06/27/2016 29883 EKG Tracing & Interpretation Completed 10/26/2015 77015 ECHO Transthoracic, Real-Time 2D With Doppler And Color Completed Flow 09/30/2015 08812 EKG Tracing & Interpretation Completed 03/30/2015 81148 EKG Tracing & Interpretation Completed 06/12/2014 86403 ECHO Transthoracic, Real-Time 2D With Doppler And Color Completed Flow 03/24/2014 16294 EKG Tracing & Interpretation Completed 03/20/2013 33478 EKG Tracing & Interpretation Completed 05/16/2012 28649 EKG Tracing & Interpretation Completed 05/02/2012 97832 ECHO Transthoracic, Real-Time 2D With Doppler And Color Completed Flow 03/04/2012 37578 EKG Tracing & Interpretation Completed 06/12/2011 16286 EKG Tracing & Interpretation Completed 06/10/2010 61604 EKG Tracing & Interpretation Completed 08/12/2009 78323 EKG Tracing & Interpretation Completed 03/11/2009 54111 EKG Tracing & Interpretation Completed 03/05/2009 44915 ECHO Transthoracic, Real-Time 2D With Doppler And Color Completed Flow 12/09/2008 88444 EKG Tracing & Interpretation Completed Encounters Type Date Location Provider Dx Diagnosis Office Visit 06/26/2018 [facility] Nurse Visit IC I10 Essential ( primary) 1:30p Of Voice Network Engineer hypertension Office Visit 05/28/2018 [facility] Breana Jackson, I71.2 Thoracic aortic 2:30p Of Voice Network Engineer N.P. aneurysm, without rupture I10 Essential (primary) hypertension I34.0 Nonrheumatic mitral (valve) insufficiency E78.00 Pure hypercholesterolemia, unspecified R00.1 Bradycardia, unspecified Office Visit 07/11/2017 3:40p [facility] Alfredo Gaytan I71.2 Thoracic aortic Vivien Starks aneurysm, without rupture I10 Essential (primary) hypertension I34.0 Nonrheumatic mitral (valve) insufficiency E78.00 Pure hypercholesterolemia, unspecified Office Visit 06/27/2016 11:40a [facility] Alfredo Gaytan I71.2 Thoracic aortic Vivien Starks aneurysm, without rupture R00.1 Bradycardia, unspecified I10 Essential (primary) hypertension I34.0 Nonrheumatic mitral (valve) insufficiency Office Visit 10/29/2015 2:30p [facility] CATARINA Rosenthal I71.2 Thoracic aortic Of Voice Network Engineer aneurysm, without rupture R00.1 Bradycardia, unspecified I10 Essential (primary) hypertension I34.0 Nonrheumatic mitral (valve) insufficiency I35.1 Nonrheumatic aortic (valve) insufficiency Office Visit 09/30/2015 9:20a [facility] Alfredo Gaytan R00.1 Bradycardia, Mauser, M.D. unspecified I10 Essential (primary) hypertension I71.2 Thoracic aortic aneurysm, without rupture I34.0 Nonrheumatic mitral (valve) insufficiency I35.1 Nonrheumatic aortic (valve) insufficiency Office Visit 08/17/2015 11:00a [facility] Rubi Mayo, I10 Essential (primary) Of Voice Network Engineer PA hypertension R00.1 Bradycardia, unspecified I71.2 Thoracic aortic aneurysm, without rupture Office Visit 07/29/2015 1:30p [facility] Rubi Mayo, I35.0 Nonrheumatic aortic Of Voice Network Engineer PA (valve) stenosis I34.1 Nonrheumatic mitral (valve) prolapse I71.2 Thoracic aortic aneurysm, without rupture I10 Essential (primary) hypertension Office Visit 06/25/2015 9:45a [facility] Rubi Mayo, I35.0 Nonrheumatic aortic Of Voice Network Engineer [place] (valve) stenosis I34.1 Nonrheumatic mitral (valve) prolapse I71.2 Thoracic aortic aneurysm, without rupture R00.1 Bradycardia, unspecified I10 Essential (primary) hypertension Office Visit 03/30/2015 2:00p [facility] Alfredo Gaytan I35.0 Nonrheumatic Of Voice Network Engineer Vivien Starks aortic (valve) stenosis I34.1 Nonrheumatic mitral (valve) prolapse I71.2 Thoracic aortic aneurysm, without rupture I10 Essential (primary) hypertension R00.1 Bradycardia, unspecified Office Visit 03/24/2014 1:40p [facility] Alfredo Gaytan 424.1 Aortic Valve Vivien Starks Disorder 424.0 Mitral Valve Disorder 441.2 Aneurysm Thoracic W/O Rupture 401.1 Hypertension Benign Office Visit 03/20/2013 2:00p [facility] Alfredo Gaytan 424.0 Mitral Valve Vivien Starks Disorder 424.1 Aortic Valve Disorder 441.2 Aneurysm Thoracic W/O Rupture 427.0 PSVT Paroxysmal Supraventricular Tachycardia 401.1 Hypertension Benign Office Visit 05/16/2012 3:20p [facility] Alfredo Gaytan 441.2 Aneurysm Vivien Starks Thoracic W/O Rupture 424.0 Mitral Valve Disorder 424.1 Aortic Valve Disorder Office Visit 04/04/2012 3:00p [facility] Nurse Visit cc 401.1 Hypertension Benign Office Visit 03/04/2012 4:00p [facility] Alfredo Gaytan 424.0 Mitral Valve Vivien Starks Disorder 401.1 Hypertension Benign 427.0 PSVT Paroxysmal Supraventricular Tachycardia 441.2 Aneurysm Thoracic W/O Rupture Office Visit 06/12/2011 1:40p [facility] Alfredo Gaytan 424.0 Mitral Valve Vivien Starks Disorder 401.1 Hypertension Benign 427.0 PSVT Paroxysmal Supraventricular Tachycardia 441.2 Aneurysm Thoracic W/O Rupture Office Visit 06/10/2010 2:00p [facility] Alfredo Gaytan 401.1 Hypertension Vivien Starks Benign 424.0 Mitral Valve Disorder Office Visit 09/17/2009 10:00a [facility] Nurse Visit cc 401.1 Hypertension Benign Office Visit 08/12/2009 2:00p [facility] Alfredo Gaytan 401.1 Ran Starks M.D. Benign Office Visit 03/11/2009 2:00p [facility] Alfredo Gaytan 401.1 Ran Starks M.D. Benign 441.21 Aortic Aneurysm Thoracic Office Visit 12/09/2008 1:40p [facility] Alfredo Gaytan 401.1 Hypertension Vivien Starks Benign 424.0 Mitral Valve Disorder 441.21 Aortic Aneurysm Thoracic Office Visit 06/16/2008 2:30p [facility] Octavio Jenkins 786.50 Pain Chest AT Jabari Oconnell M.D. Unspec [place] 401.1 Hypertension Benign Plan of Treatment Future Appointment(s):08/08/2018 1:30 pm - Breana Jackson N.P. at [facility]07/08/2018 - Nurse Visit ICR07.9 Chest pain, unspecified
--- NOTE | 2018-07-15 20:10 | ED ---
Respiratory - HPI Summary HPI Summary: The patient is a 73 y/o F presenting to [facility] accompanied by with a chief complaint of gradual onset nonproductive cough starting approximately a week ago. She reports that she was admitted to the hospital a week ago for a NE , and over the course of her stay, she started to develop a dry cough. Since being discharged, the cough has not gone away but seems to have worsened. There are no aggravating or alleviating factors. She denies fever, sinus and chest congestion, and CP. Hx of HTN. She had a stent placed by Dr. Ortiz during her admission after the NE. - History of Current Complaint Chief Complaint: EDUpperRespComplaint Stated Complaint: COUGH PER PT Time Seen by Provider: 07/15/18 20:01 Hx Obtained From: Patient Onset/Duration: Gradual Onset, Lasting Days - about one week, Still Present Timing: Constant Initial Severity: Mild Current Severity: Moderate Pain Intensity: 0 Character: Cough (Nonproductive) Sputum Amount: None Aggravating Factor(s): Nothing Alleviating Factor(s): Nothing Associated Signs and Symptoms: Negative - fever, sinus congestion, CP - Allergy/Home Medications Allergies/Adverse Reactions: Allergies Allergy/AdvReac Type Severity Reaction Status Date / Time No Known Allergies Allergy Verified 07/15/18 19:08 PMH/Surg Hx/FS Hx/Imm Hx Endocrine/Hematology History: Denies: Hx Diabetes Cardiovascular History: Reports: Hx Aneurysm, Hx Hypertension Denies: Hx Angina, Hx Coronary Artery Disease, Hx Hypercholesterolemia, Hx Myocardial Infarction, Hx Pacemaker/ICD, Hx Valvular Heart Disease Respiratory History: Denies: Hx Asthma, Hx Chronic Obstructive Pulmonary Disease (COPD) Comment Only: Other Respiratory Problems/Disorders - hx of colapsed lung 1994 unknown reason History: Denies: Hx Chronic Renal Failure, Hx Renal Disease Sensory History: Reports: Hx Contacts or Glasses Denies: Hx Hearing Aid Opthamlomology History: Reports: Hx Contacts or Glasses Psychiatric History: Reports: Hx Anxiety - Surgical History Surgery Procedure, Year, and Place: hysterectomy Infectious Disease History: No Infectious Disease History: Denies: Traveled Outside the [place] in Last 30 Days - Family History Known Family History: Positive: Cardiac Disease, Diabetes - Social History Lives: With Family Alcohol Use: Occasionally Hx Substance Use: No Substance Use Type: Reports: None Hx Tobacco Use: Yes Smoking Status (MU): Former Smoker Do You Chew or Dip Tobacco: No Have You Chewed or Dipped Tobacco in the LAST YEAR: No Have You Smoked in the Last Year: No Review of Systems Negative: Fever Positive: Other - NEGATIVE: sinus congestion Negative: Chest Pain Positive: Cough - nonproductive All Other Systems Reviewed And Are Negative: Yes Physical Exam - Summary Physical Exam Summary: Appearance: The patient is well-nourished in no acute distress and in no acute pain. Skin: The skin is warm and dry and skin color reflects adequate perfusion. HEENT: The head is normocephalic and atraumatic. The pupils are equal and reactive. The conjunctivae are clear and without drainage. Nares are patent and without drainage. Mouth reveals moist mucous membranes and the throat is without erythema and exudate. The external ears are intact. The ear canals are patent and without drainage. The tympanic membranes are intact. Neck: The neck is supple with full range of motion and non-tender. There are no carotid bruits. There is no neck vein distension. Respiratory: Chest is non-tender. Lungs are clear to auscultation and breath sounds are symmetrical and equal. Cardiovascular: Heart is regular rate and rhythm. There is no murmur or rub auscultated. There is no peripheral edema and pulses are symmetrical and equal. Abdomen: The abdomen is soft and non-tender. There are normal bowel sounds heard in all four quadrants and there is no organomegaly palpated. Musculoskeletal: There is no back tenderness noted. Extremities are non-tender with full range of motion. There is good capillary refill. There is no peripheral edema or calf tenderness elicited. Neurological: Patient is alert and oriented to person, place and time. The patient has symmetrical motor strength in all four extremities. Cranial nerves are grossly intact. Deep tendon reflexes are symmetrical and equal in all four extremities. Psychiatric: The patient has an appropriate affect and does not exhibit any anxiety or depression. Triage Information Reviewed: Yes Vital Signs On Initial Exam: Initial Vitals Temp Pulse Resp BP Pulse Ox 98.5 F 64 18 149/78 97 07/15/18 19:04 07/15/18 19:04 07/15/18 19:04 07/15/18 19:04 07/15/18 19:04 Vital Signs Reviewed: Yes Diagnostics - Vital Signs Vital Signs Temp Pulse Resp BP Pulse Ox 07/15/18 19:04 98.5 F 64 18 149/78 97 - Laboratory Result Diagrams: 07/15/18 20:26 07/15/18 20:26 Lab Statement: Any lab studies that have been ordered have been reviewed, and results considered in the medical decision making process. - Radiology CXR Radiology Interpretation Completed By: Radiologist Summary of Radiographic Findings: Mild increased interstitial markings. ED physician has reviewed this report. Re-Evaluation - Re-Evaluation First Eval Re-Evaluation Time: 21:25 Change: Unchanged Comment: I spoke with the patient concerning lab and imaging results. We discussed discharge home. Disposition - Course Course Of Treatment: Ms. Keen possibly has some mild pulmonary edema. But I don't think it significant enough to be causing her irritating, nonproductive cough. She has recently been started on brylinta and metoprolol either which could be causing her cough. I recommended she contact Dr. Patterson tomorrow for advice. She is nontoxic in appearance with stable vitals. - Diagnoses Provider Diagnoses: Medication reaction Discharge - Sign-Out/Discharge Documenting (check all that apply): Patient Departure - Patient will be discharged home. Patient Received Moderate/Deep Sedation with Procedure: No - Discharge Plan Condition: Stable Disposition: HOME Patient Education Materials: Acute Cough (ED) Referrals: Zac Patterson MD [Medical Doctor] - 2 Days Additional Instructions: Follow up with Dr. Patterson in the next 1-2 days. RETURN TO THE EMERGENCY DEPARTMENT FOR ANY NEW OR WORSENING SYMPTOMS THAT MAY OCCUR. - Billing Disposition and Condition Condition: STABLE Disposition: Home - Attestation Statements Document Initiated by Scribe: Yes Documenting Scribe: Blanca Felipe Provider For Whom Fawad is Documenting (Include Credential): Dr. Basil Medina MD Scribe Attestation: Blanca Marion scribed for Dr. Basil Medina MD on 07/16/18 at 1710. Scribe Documentation Reviewed: Yes Provider Attestation: The documentation as recorded by the Blanca junior accurately reflects the service I personally performed and the decisions made by me, Dr. Basil Medina MD Status of Scribe Document: Viewed
[2018-07-15 20:34] LABS: ABS Basophils 0.1 10^3/ul (0-0.2); ABS Eosinophils 0.2 10^3/ul (0-0.6); ABS Monocytes 0.6 10^3/ul (0-0.8); ABS Neutrophils 3.5 10^3/ul (1.5-7.7); Eosinophil % 3.9 %; Hematocrit 41 % (35-47); Hemoglobin 13.7 g/dL (12.0-16.0); Lymphocyte % 18.7 %; Mean Corpuscular HGB Conc 33 g/dL (31-36); Mean Corpuscular Hemoglobin 29 pg (27-31); Mean Corpuscular Volume 86 fL (80-97); Mean Platelet Volume 7.6 fL (7.4-10.4); Platelet Count 146 10^3/uL (150-450); Red Blood Count 4.77 10^6 /uL (3.70-4.87); Red Cell Distribution Width 14 % (10.5-15); White Blood Count 5.3 10^3/uL (3.5-10.8)
[2018-07-15 20:51] LABS: Albumin 4.1 g/dL (3.2-5.2); Albumin/Globulin Ratio 1.4 (1-3); BUN/Creatinine Ratio 23.3 (8-20); Calcium 9.5 mg/dL (8.6-10.3); EGFR African American 53.1 (>60); EGFR Non-African American 43.9 (>60); Potassium 4.6 mmol/L (3.5-5.0); Total Bilirubin 0.4 mg/dL (0.2-1.0); Total Protein 7.1 g/dL (6.4-8.9)
[2018-07-15 21:57] VITALS: BP 151/77
== END | disposition home or self-care (01) ==
LOC: ED 18:52
DX: R05 Cough (principal); T50.905A Adverse effect of unspecified drugs, medicaments and biological substances, initial encounter; Y92.9 Unspecified place or not applicable; I10 Essential (primary) hypertension; I25.10 Atherosclerotic heart disease of native coronary artery without angina pectoris; I21.9 Acute myocardial infarction, unspecified; F41.9 Anxiety disorder, unspecified; Z87.891 Personal history of nicotine dependence
CPT/HCPCS: 36415; 71046; 80053; 83880; 85025; 99282

== ENCOUNTER 2018-10-27 11:35 | Emergency (ER) | payer MEDICARE, BC ==
--- OUTSIDE RECORDS SUMMARY | 2018-10-27 11:50 | XMS REPORT | Summary of Care ---
:1945 Author Organization [facility] Address [address] [facility] [address] [address] Care Team Providers Name Role Phone Vonnie Miguel MD Primary Care Provider Reason for Visit Reason Comments Follow Up 3mth lab results Encounter Details Date Type Department Care Team Description 10/17/2018 Office Visit [facility] Cyndee Miguel (Primary Dx); Practice MD Vonnie Dizziness [address] [address] [place] [address] [phone] Allergies Active Allergy Reactions Severity Noted Date Comments Doxycycline GI Reaction 08/12/2018 Nausea, vomiting. Rash No Known Allergies Other 08/02/2007 documented as of this encounter (statuses as of 10/17/2018) Medications Medication Sig Dispensed Refills Start Date End Date Status aspirin (ECOTRIN) 81 Take 81 mg by 0 Active MG Oral Tab EC mouth DAILY. Esomeprazole 20 MG Take 1 Cap by 90 Cap 1 08/06/2017 Active Oral CAPSULE DELAYED mouth DAILY. RELEASE metoprolol tartrate Take 12.5 mg 0 Active (LOPRESSOR) 25 by mouth mgIndications: take DAILY. half tab daily Indications: take half tab daily nitroglycerin Place 0.4 mg 0 Active (NITROSTAT) 0.4 MG under tongue Sublingual SL Tab EVERY FIVE MINUTES NEEDED for chest pain (PRN). atorvastatin Take 40 mg by 0 Active (LIPITOR) 40 MG Oral mouth DAILY. Tab ticagrelor Take 90 mg by 0 Active (BRILINTA) 90 MG mouth TWICE Oral Tab DAILY. diazepam (VALIUM) 5 Take 1 Tab by 30 Tab 0 07/17/2018 Active MG Oral mouth EVERY TabIndications: SIX HOURS Anxiety NEEDED (anxiety). Max Daily Amount: 20 mg. spironolactone Take 25 mg by 0 Active (ALDACTONE) 25 MG mouth DAILY. Oral Tab valsartan (DIOVAN) Take 40 mg by 0 Active 40 MG Oral mouth DAILY. TabIndications: Indications: takes 1/2 tab daily takes 1/2 tab daily Nutritional Take 1 Bottle 0 Active Supplements (ENSURE by mouth COMPLETE PO) DAILY. calcium Take 1 Tab by 0 10/17/2018 Discontinued carbonate-vitamin D mouth DAILY. (CALCIUM 600 + D) 600-400 MG-UNIT Oral Tab irbesartan (AVAPRO) Take 75 mg by 0 10/17/2018 Discontinued 75 MG Oral Tab mouth DAILY. documented as of this encounter (statuses as of 10/17/2018) Active Problems Problem Noted Date Colon polyps 11/23/2014 Aorta aneurysm 06/22/2011 Overview: ascending thoracic, CT scan 05/2011 at [facility], 4.1 cm Anxiety 05/03/2011 Panic attacks 05/22/2006 Osteopenia 05/22/2006 Hypertension documented as of this encounter (statuses as of 10/17/2018) Immunizations Name Administration Dates Next Due Influenza (IM) Preservative Free 11/21/2012, 11/30/2011 Influenza Vaccine High Dose 12/03/2017, 12/03/2015, 11/18/2014, 12/03/2013 Influenza Vaccine Whole 12/21/2008 Influenza Virus Vaccine - Whole 12/12/2007, 12/12/2006 Influenza Virus Vaccine Pres Free 6-35 11/25/2010, 11/29/2009 Months PNEUMOCOCCAL POLYSACCHARIDE VACCINE 07/03/2012 Pneumococcal Conjugate Vaccine 11/26/2002 Pneumococcal Conjugate(13 Valent) 06/07/2015 TDAP Vaccine 03/31/2010 ZOSTER (ZOSTAVAX) VACCINE 03/31/2010 documented as of this encounter Social History Tobacco Use Types Packs/Day Years Used Date Former Smoker Cigarettes 1 Smokeless Tobacco: Never Used Comments: quit 22 years ago Alcohol Use Drinks/Week oz/Week Comments Yes occas/ rarely Sex Assigned at Date Recorded Not on file Job Start Date Occupation Industry Not on file Not on file Not on file Travel History Travel Start Travel End No recent travel history available. documented as of this encounter Last Filed Vital Signs Vital Sign Reading Time Taken Comments Blood Pressure 110/60 10/17/2018 2:06 PM EDT Pulse 60 10/17/2018 2:06 PM EDT Temperature 36.7 10/17/2018 2:06 PM EDT C (98.1 F) Respiratory Rate - - Oxygen Saturation 98% 10/17/2018 2:06 PM EDT Inhaled Oxygen Concentration - - Weight 60.4 kg (133 lb 3.2 oz) 10/17/2018 2:06 PM EDT Height 170.2 cm (5' 7") 10/17/2018 2:06 PM EDT Body Mass Index 20.86 10/17/2018 2:06 PM EDT documented in this encounter Patient Instructions Patient InstructionsVonnie Miguel MD - 10/17/2018 2:00 PM EDT1. Schedule fasting blood tests in 5 months documented in this encounter Progress Notes Vonnie Miguel MD - 10/17/2018 2:00 PM EDT PATIENT: Wandy Keen : 1945 DATE OF SERVICE: 10/17/2018 Patient comes follow up HTN, anxiety, CAD Generally feels OK Has episodes of anxiety. Has to take Valium once or twice a week Concerned about her BP being low Had episode of positional vertigo over the weekend that completely resolved now. Past Medical History: Diagnosis Date Anxiety Aorta aneurysm (HCC) 06/22/2011 Dr. Verma GERD (gastroesophageal reflux disease) 12/13/2005 Hypertension Myocardial infarction (HCC) 06/2018 inferiorlateral mall Osteopenia 05/22/2006 Panic attacks 05/22/2006 Outpatient Medications as of 10/17/2018 Medication Sig Dispense Refill aspirin (ECOTRIN) 81 MG Oral Tab EC Take 81 mg by mouth DAILY. atorvastatin (LIPITOR) 40 MG Oral Tab Take 40 mg by mouth DAILY. diazepam (VALIUM) 5 MG Oral Tab Take 1 Tab by mouth EVERY SIX HOURS NEEDED (anxiety). Max Daily Amount: 20 mg. 30 Tab 0 Esomeprazole 20 MG Oral CAPSULE DELAYED RELEASE Take 1 Cap by mouth DAILY. 90 Cap 1 metoprolol tartrate (LOPRESSOR) 25 mg Take 12.5 mg by mouth DAILY. Indications: take half tabdaily nitroglycerin (NITROSTAT) 0.4 MG Sublingual SL Tab Place 0.4 mg under tongue EVERY FIVE MINUTES NEEDED for chest pain (PRN). spironolactone (ALDACTONE) 25 MG Oral Tab Take 25 mg by mouth DAILY. ticagrelor (BRILINTA) 90 MG Oral Tab Take 90 mg by mouth TWICE DAILY. No current facility-administered medications on file as of 10/17/2018. BP 110/60 (BP Location: Left arm, Patient Position: Sitting) | Pulse 60 | Temp 98.1 F (36.7 C) | Ht 5' 7" (1.702 m) | Wt 133 lb 3.2 oz (60.4 kg ) | SpO2 98% | BMI 20.86 kg/m No orthostatic BP change General appearance: alert, well appearing, and in no distress. Chest: clear to auscultation, no wheezes, rales or rhonchi, symmetric air entry. CVS exam: normal rate, regular rhythm, normal S1, S2, no murmurs, rubs, clicks or gallops. ICD-9-CM ICD-10-CM 1. Anxiety Advised on SSRI. Was doing well on Celexa in the past. Doesn't want to try it: thinks it was affecting her memory Will continue Valium prn 300.00 F41.9 2. Dizziness Resolved BPV? 780.4 R42 Patient Instructions 1. Schedule fasting blood tests in 5 months Author: Vonnie Miguel MD 10/17/2018 15:10 documented in this encounter Plan of Treatment Date Type Specialty Care Team Description 03/17/2019 Lab Internal Medicine Health Maintenance Due Date Last Done Comments HIV SCREENING 04/29/1959 ZOSTER IMMUNIZATION SERIES 05/26/2010 03/31/2010 (2 of 3) COLONOSCOPY SCREENING 08/10/2014 08/10/2009 (Previously completed), 08/10/2009 INFLUENZA VACCINE (#1) 2018 12/03/2017, 12/03/2015, 11/18/2014, Additional history exists MAMMOGRAM (SCREENING) 12/28/2018 12/28/2017, 10/04/2016, 09/28/2015, Additional history exists DEPRESSION SCREENING 04/05/2019 04/05/2018 FALL RISK ASSESSMENT 04/05/2019 04/05/2018, 04/05/2018 MEDICARE ANNUAL WELLNESS 04/05/2019 04/05/2018, 06/08/2016, VISIT 06/08/2016, Additional history exists LIPID DISORDER SCREENING 09/17/2019 09/16/2018, 07/17/2018, 05/02/2017, Additional history exists OSTEOPOROSIS SCREENING 08/30/2021 08/31/2011, 08/18/2009 PNEUMOCOCCAL 65+YRS Completed 06/07/2015, 07/03/2012, 11/26/2002 HPV IMMUNIZATION SERIES Aged Out No longer eligible based on patient's age to complete this topic MENINGOCOCCAL VACCINE IMM Aged Out No longer eligible based on patient's age to complete this topic documented as of this encounter Goals Goal Patient Goal Associated Recent Patient-Stated? Author Type Problems Progress Blood Pressure Blood Pressure Hypertension 110/60 No Myriam, < 140/90 (10/17/2018 Vonnie, 2:06 PM EDT) Note: Hypertension Care Plan Based on the patient's clinical history and according to JNC 8 guidelines target blood pressure goal is less than 140/90. Based on the patient's last blood pressure of BP: 124/82 mmHg the patient is at at goal. As your provider, it is important that I advise you regarding: your current medications and help you with any challenges you may face taking your medications as directed (ex. instructions, cost, side effects, and interactions). Important lifestyle changes: dietary sodium reduction your clinical goals and how you can achieve success: exercise plan medication management: adjusted medications as appropriate patient education/self-management tools provided: Yes To successfully manage my Hypertension I will: monitor my blood pressure daily, understanding that my goal is less than 140/ 90 per my healthcare provider's recommendation. I will schedule an appointment with my provider if consistent abnormal readings greater than 160/100. take medications every day as prescribed by my healthcare provider and if unable to take them I will discuss with my provider. monitor for symptoms of chest pain, chest tightness/pressure, irregular heartbeat, persistent dizziness, radiating arm pain, and neck or jaw pain. If any of these symptoms are noticed I will seek medical attention immediately by calling 911 exercise/walk 30 minutes 5 day(s) per week. If I experience chest pain, chest tightness, or shortness of breath, I will seek medical attention immediately. follow a diet rich in fruits, vegetables, and low-fat dairy products with reduced content of saturated & total fat. I will reduce my sodium intake daily. An example is the DASH diet. To obtain more information please refer to the DASH Eating Plan listed in Educational Resources. record my blood pressure results. Luis Eduardo is safe and secure way for you to do this in your medical record online. limit alcohol consumption. For men two drinks per day and women one drink per day. if currently smoking, will discuss how to quit smoking with my healthcare provider and work towards quitting. Educational Resources: National Heart, Lung, & Blood [place] http://nhlbi.nih.gov/hbp/index.html The DASH Diet Eating Plan http://www.nhlbi.nih.gov/health/health-topics/ topics/dash/ Academy of Nutrition & DIetetics http://eatright.org National Smoking Cessation Site http://smokefree.gov Blood Pressure < Blood Pressure 110/60 (10/17/2018 Vonnie Michael, 150/90 2:06 PM EDT) Note: This is an individualized treatment (blood pressure) goal for Wandy Keen: Displayed above (on the left) is your goal for blood pressure control. Your most recent blood pressure is also shown above, on the right. You should try to achieve blood pressures that are lower than your goal listed above (on the left). Take all prescribed medications as Self-management Vonnie Michael MD directed Note: This is an individualized self-management goal for Wandy Keen: Please take all prescribed medications as directed. 1. Do not skip doses. If you cannot afford your medications, talk with your doctor. 2. Use a pill reminder system such as a pill box if needed. Your pharmacist can help you with this. 3. Contact your Pharmacy 5 days before your medication runs out. If you cannot take your medications for any reasons, talk with your doctor. 4. Please bring all of your medication bottles and inhalers (or a list of all your medications/inhalers) with you to every visit. Potential barriers to meeting all of your care plan goals will continue to be addressed on an ongoing basis. documented as of this encounter Results Not on filedocumented in this encounter Visit Diagnoses Diagnosis Anxiety - Primary Anxiety state, unspecified Dizziness Dizziness and giddiness documented in this encounter Insurance Payer Benefit Plan / Subscriber ID Effective Dates Phone Address Type Group MEDICARE MEDICARE PART A & xxxxxxxxxxx 2009-Present Medicare B [employer] xxxxxxxxxxxx 2014-Present [employer] Name Account Type Relation to Date of Phone Billing Address Patient Wandy Keen Personal/Family 1945 [address] (Home) [address] [phone] [place], [place] (Work) [id number] documented as of this encounter
[2018-10-27] MEDS ORDERED: NS 0.9% 1000 ML** 1,000 ML IV ONE (12:01)
[2018-10-27] MEDS ORDERED: ceFAZolin 2 GM in NS PREMIX(*) 2 GM/100 ML BAG IVPB ONE (12:01)
[2018-10-27 12:21] LABS: ABS Eosinophils 0.3 10^3/ul (0-0.6); ABS Monocytes 0.5 10^3/ul (0-0.8); ABS Neutrophils 4.3 10^3/ul (1.5-7.7); Eosinophil % 4.4 %; Hematocrit 42 % (35-47); Hemoglobin 14.2 g/dL (12.0-16.0); Lymphocyte % 16.1 %; Mean Corpuscular HGB Conc 34 g/dL (31-36); Mean Corpuscular Hemoglobin 30 pg (27-31); Mean Corpuscular Volume 88 fL (80-97); Mean Platelet Volume 7.5 fL (7.4-10.4); Platelet Count 156 10^3/uL (150-450); Red Blood Count 4.76 10^6 /uL (3.70-4.87); Red Cell Distribution Width 15 % (10-15); White Blood Count 6.1 10^3/uL (3.5-10.8)
[2018-10-27 12:44] LABS: Albumin 3.9 g/dL (3.2-5.2); Calcium 9.8 mg/dL (8.6-10.3); Potassium 4.1 mmol/L (3.5-5.0); Total Bilirubin 0.7 mg/dL (0.2-1.0)
[2018-10-27 12:50] LABS: Albumin/Globulin Ratio 1.5 (1-3); BUN/Creatinine Ratio 16.1 (8-20); C Reactive Protein 1.37 mg/L (<8.01); EGFR African American 57.5 (>60); EGFR Non-African American 47.6 (>60); Globulin 2.6 g/dL (2-4); Total Protein 6.5 g/dL (6.4-8.9)
--- NOTE | 2018-10-27 13:21 | ED ---
Skin Complaint - HPI Summary HPI Summary: This patient is a 73-year-old female presenting to the ED with left shoulder and chest wall erythema and pruritus. She states she was stung today by a horsefly and the area began to spread. Patient states the area is painful and pruritic. She is also endorsing erythema and warmth to the area. Denies any other symptoms including fevers, sweats, chills, difficulty with range of motion of the left arm. Denies any CP or SOB. Denies any dysphagia or odynophagia. She states she has been feeling otherwise in her usual state of health. VS stable on arrival. Last here in ED and admitted to hosptial for STEMI 5 mos ago. - History of Current Complaint Chief Complaint: EDRashSkinAbscess Time Seen by Provider: 10/27/18 11:45 Stated Complaint: RED/SWOLLEN ARM FROM BUG BITE PER PT Hx Obtained From: Patient Onset/Duration: Started Hours Ago Skin Exposure Onset/Duration: Hours Ago Timing: Constant Onset Severity: Moderate Current Severity: Moderate Pain Intensity: 6 Pain Scale Used: 0-10 Numeric Skin Location: Other: - left chest area to the L shoulder Aggravating Symptom(s): Nothing Alleviating Symptom(s): Nothing Associated Signs & Symptoms: Negative Related History: Insect Bite/Sting - Additional Pertinent History Primary Care Physician: BRENDEN - Allergy/Home Medications Allergies/Adverse Reactions: Allergies Allergy/AdvReac Type Severity Reaction Status Date / Time doxycycline Allergy Severe Coughing Verified 10/27/18 11:41 PMH/Surg Hx/FS Hx/Imm Hx Previously Healthy: Yes Endocrine/Hematology History: Denies: Hx Diabetes Cardiovascular History: Reports: Hx Aneurysm, Hx Hypertension Denies: Hx Angina, Hx Coronary Artery Disease, Hx Hypercholesterolemia, Hx Myocardial Infarction, Hx Pacemaker/ICD, Hx Valvular Heart Disease Respiratory History: Denies: Hx Asthma, Hx Chronic Obstructive Pulmonary Disease (COPD) Comment Only: Other Respiratory Problems/Disorders - hx of colapsed lung 1994 unknown reason History: Denies: Hx Chronic Renal Failure, Hx Renal Disease Sensory History: Reports: Hx Contacts or Glasses Denies: Hx Hearing Aid Opthamlomology History: Reports: Hx Contacts or Glasses Psychiatric History: Reports: Hx Anxiety - Surgical History Surgery Procedure, Year, and Place: hysterectomy - Immunization History Hx Pertussis Vaccination: No Immunizations Up to Date: Yes Infectious Disease History: No Infectious Disease History: Denies: Traveled Outside the [place] in Last 30 Days - Family History Known Family History: Positive: Cardiac Disease, Diabetes - Social History Occupation: Unemployed Lives: With Family Alcohol Use: Occasionally Hx Substance Use: No Substance Use Type: Reports: None Hx Tobacco Use: Yes Smoking Status (MU): Former Smoker Have You Smoked in the Last Year: No Review of Systems Constitutional: Negative Negative: Fever, Chills, Fatigue, Skin Diaphoresis Negative: Palpitations, Chest Pain Negative: Shortness Of Breath, Cough Genitourinary: Negative Positive: no symptoms reported, see HPI Negative: Arthralgia, Myalgia Positive: Rash - left shoulder and left chest wall erythema and slight swelling with warmth Neurological: Negative All Other Systems Reviewed And Are Negative: Yes Physical Exam Triage Information Reviewed: Yes Vital Signs On Initial Exam: Initial Vitals Temp Pulse Resp BP Pulse Ox 97.1 F 58 14 148/74 99 10/27/18 11:37 10/27/18 11:37 10/27/18 11:37 10/27/18 11:37 10/27/18 11:37 Vital Signs Reviewed: Yes Appearance: Positive: Well-Appearing, Well-Nourished Skin: Positive: Other - left shoulder and left chest wall erythema and slight swelling with warmth Head/Face: Positive: Normal Head/Face Inspection Eyes: Positive: EOMI, SHIRIN, Conjunctiva Clear Neck: Positive: Supple, No Lymphadenopathy Respiratory/Lung Sounds: Positive: Clear to Auscultation, Breath Sounds Present Cardiovascular: Positive: RRR, Pulses are Symmetrical in both Upper and Lower Extremities Neurological: Positive: Sensory/Motor Intact, Alert, Oriented to Person Place, Time, Speech Normal Psychiatric: Positive: Affect/Mood Appropriate AVPU Assessment: Alert Diagnostics - Vital Signs Vital Signs Temp Pulse Resp BP Pulse Ox 10/27/18 11:37 97.1 F 58 14 148/74 99 - Laboratory Lab Results: Lab Results 10/27/18 10/27/18 10/27/18 Range/Units 12:14 12:14 12:14 WBC 6.1 (3.5-10.8) 10^3/uL RBC 4.76 (3.70-4.87) 10^6 /uL Hgb 14.2 (12.0-16.0) g/dL Hct 42 (35-47) % MCV 88 (80-97) fL MCH 30 (27-31) pg MCHC 34 (31-36) g/dL RDW 15 (10-15) % Plt Count 156 (150-450) 10^3/uL MPV 7.5 (7.4-10.4) fL Neut % (Auto) 70.7 % Lymph % (Auto) 16.1 % [place] % (Auto) 8.4 % Eos % (Auto) 4.4 % Baso % (Auto) 0.4 % Absolute Neuts (auto) 4.3 (1.5-7.7) 10^3/ul Absolute Lymphs (auto) 1.0 (1.0-4.8) 10^3/ul Absolute Monos (auto) 0.5 (0-0.8) 10^3/ul Absolute Eos (auto) 0.3 (0-0.6) 10^3/ul Absolute Basos (auto) 0.0 (0-0.2) 10^3/ul Absolute Nucleated RBC 0.0 10^3/ul Nucleated RBC % 0.0 Sodium 142 (135-145) mmol/L Potassium 4.1 (3.5-5.0) mmol/L Chloride 107 (101-111) mmol/L Carbon Dioxide 31 (22-32) mmol/L Anion Gap 4 (2-11) mmol/L BUN 18 (6-24) mg/dL Creatinine 1.12 H (0.51-0.95) mg/dL Est GFR ( Amer) 57.5 (>60) Est GFR (Non-Af Amer) 47.6 (>60) BUN/Creatinine Ratio 16.1 (8-20) Glucose 109 H (70-100) mg/dL Lactic Acid 1.3 (0.5-2.0) mmol/L Calcium 9.8 (8.6-10.3) mg/dL Total Bilirubin 0.70 (0.2-1.0) mg/dL AST 22 (13-39) U/L ALT 16 (7-52) U/L Alkaline Phosphatase 77 (34-104) U/L Total Creatine Kinase 96 (10-223) U/L C-Reactive Protein 1.37 (<8.01) mg/L Total Protein 6.5 (6.4-8.9) g/dL Albumin 3.9 (3.2-5.2) g/dL Globulin 2.6 (2-4) g/dL Albumin/Globulin Ratio 1.5 (1-3) Result Diagrams: 10/27/18 12:14 10/27/18 12:14 Lab Statement: Any lab studies that have been ordered have been reviewed, and results considered in the medical decision making process. Course/Dx - Course Course Of Treatment: During the course of treatment, the patient is evaluated for cellulitic infection to the left shoulder radiating to the left chest wall. She states this was from a horse fly bite from 2 days ago. She is endorsing pruritus to the area. The area is slightly raised in some areas, however also look cellulitic. She is given Kefzol 2 g here in the ED as well as normal saline. Labs obtained and are unremarkable. She will be treated for cellulitic infection as well as for an allergic reaction. She is encouraged Benadryl, famotidine and she is given clindamycin per her request. - Diagnoses Provider Diagnoses: Allergic reaction, Cellulitis Discharge ED - Sign-Out/Discharge Documenting (check all that apply): Patient Departure Patient Received Moderate/Deep Sedation with Procedure: No - Discharge Plan Condition: Stable Disposition: HOME Prescriptions: Clindamycin Cap(NF) [Clindamycin Cap 300 mg Cap(NF)] 300 mg PO Q6H #28 cap Patient Education Materials: Cellulitis (ED) Referrals: Vonnie Miguel MD [Primary Care Provider] - Additional Instructions: Keflex four times daily x 7 days Cold compresses to the area may help with symptoms - Billing Disposition and Condition Condition: STABLE Disposition: Home
[2018-10-27 13:38] VITALS: BP 125/58
== END 2018-10-27 13:19 | disposition home or self-care (01) ==
LOC: ED 11:35
DX: L03.114 Cellulitis of left upper limb (principal); T78.40XA Allergy, unspecified, initial encounter; X58.XXXA Exposure to other specified factors, initial encounter; I10 Essential (primary) hypertension; I25.2 Old myocardial infarction; Z95.810 Presence of automatic (implantable) cardiac defibrillator; F41.9 Anxiety disorder, unspecified; Z87.891 Personal history of nicotine dependence
CPT/HCPCS: 36415; 80053; 82550; 83605; 85025; 86140; 96361; 96374; 99282; J0690

== ENCOUNTER 2018-12-13 20:50 | Emergency (ER) | payer MEDICARE, BC ==
--- OUTSIDE RECORDS SUMMARY | 2018-12-13 21:06 | XMS REPORT | Continuity of Care Document ---
:1945 External Reference #:[id number] Author Name Breana Jackson N.P. (transmitted by agent of provider Catherine Read) Address [address] 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 Onset: 06/12/2011 Benign essential hypertension Alfredo Starks M.D. Onset: 06/12/2011 Aortic valve disorder Alfredo Starks M.D. Onset: 03/20/2013 Aneurysm of thoracic aorta Alfredo Starks M.D. Onset: 03/20/2013 Essential hypertension Alfredo Starks M.D. Onset: 03/30/2015 Acute subendocardial infarction Kaci Mcneill MD, [facility] Onset: Social History Type Date Description Comments Sex Unknown Tobacco Use Start: Unknown End: Former Cigarette Smoker smoked for 21 Unknown 1 Pack Daily years. Quit 23 years ago. ETOH Use Denies alcohol use Tobacco Use Start: Unknown End: Patient is a former Unknown smoker Recreational Drug Use Denies Drug Use Smoking Status Reviewed: 12/12/18 Patient is a former smoker Enjoy Exercising Enjoys exercising Exercise Type/Frequency Exercises regularly daily. Allergies, Adverse Reactions, Alerts Active Allergies Reaction Severity Comments Date Paxil felt poorly. 12/09/2008 Lexapro lethargy 12/09/2008 Inactive Allergies NKDA 06/16/2008 Medications Active Medications SIG Qnty Indications Ordering Provider Date Brilinta 1 tab by mouth 180tabs I21.4 Kaci Mcneill 07/24/2018 90mg Tablets twice a day , [facility], [facility] Lipitor 1 by mouth at 90tabs Breana Jackson, 07/10/2018 40mg Tablets bedtime N.P. Nexium 1 by mouth Unknown 07/10/[address] every day as needed Diazepam 1 po qd prn 60tabs Other Physician 06/16/2008 5mg Tablets Practices Asa 1 po qd 30units Unknown 81mg Nitroglycerin 1 sl q5mins x3 Unknown 0.4mg as needed for Tablets Sub chest pain Aldactone 1 by mouth 90tabs Breana Jackson, 25mg Tablets every day N.P. Ensure Max Protein daily Unknown Liquid History Medications Valsartan 1/2 tab by mouth 45tabs Alfredo Starks, 09/24/2018 - 40mg every day M.D. 11/19/2018 Tablets Losartan Potassium 1 by mouth every Unknown 07/10/2018 - day 08/07/2018 25mg Tablets Immunizations Description No Information Available Vital Signs Date Vital Result Comment 12/12/2018 2:59pm Height 67 inches 5'7" Weight 133.50 lb Heart Rate 70 /min L. radial, regular BP Systolic Sitting 102 mmHg LA, reg cuff BP Diastolic Sitting 78 mmHg LA, reg cuff BP Systolic Standing 102 mmHg LA, reg cuff BP Diastolic Standing 88 mmHg LA, reg cuff BMI (Body Mass Index) 20.9 kg/m2 Ejection Fraction 55-60% 08/26/18 11/19/2018 12:54pm Height 67 inches 5'7" Weight 133.38 lb with shoes Heart Rate 56 /min BP Systolic Sitting 112 mmHg BP Diastolic Sitting 70 mmHg BP Systolic Standing 108 mmHg BP Diastolic Standing 70 mmHg BP Systolic Lying Down 97 mmHg la repeat sitting BP Diastolic Lying Down 61 mmHg la repeat sitting BMI (Body Mass Index) 20.9 kg/m2 Ejection Fraction 55-60% Echocardiogram 08/26/2018 Results Test Date Facility Test Result H/L Range Note Lipid Panel - 11/22/2018 [facility] Creatine 141 U/L Normal 10 -223 [address] [facility] [address] Kinase(CK) [place] [address] [phone] Comp Metabolic 11/22/2018 [facility] Sodium 141 mmol/L Normal 135-145 Panel [address] [place] [address] [phone] Potassium 4.4 mmol/L Normal 3.5-5.0 Chloride 107 mmol/L Normal 101-111 Co2 Carbon Dioxide 29 mmol/L Normal 22-32 Anion Gap 5 mmol/L Normal 2-11 Glucose 91 mg/dL Normal 70-100 Blood Urea Nitrogen 25 mg/dL High 6-24 Creatinine 1.04 mg/dL High 0.51-0.95 BUN/Creatinine Ratio 24.0 High 8-20 Calcium 9.2 mg/dL Normal 8.6-10.3 Total Protein 6.4 g/dL Normal 6.4-8.9 Albumin 4.0 g/dL Normal 3.2-5.2 Globulin 2.4 g/dL Normal 2-4 Albumin/Globulin Ratio 1.7 Normal 1-3 Total Bilirubin 0.50 mg/dL Normal 0.2-1.0 Alkaline Phosphatase 90 U/L Normal 34-104 Alt 17 U/L Normal 7-52 Ast 24 U/L Normal 13-39 Egfr Non- 51.8 >60 Egfr 62.7 >60 2 Lipid Profile 11/22/2018 [facility] Triglycerides 54 mg/dL 3 (Trig/Chol/HDL) [address] [place] [address] [phone] Cholesterol 114 mg/dL 4 HDL Cholesterol 46.8 mg/dL 5 LDL Cholesterol 56 mg/dL 6 Laboratory test 11/22/2018 [facility] Hemoglobin A1c 5.7 % High 4.0-5.6 7 finding [address] [facility] (Glyco HGB) [place] [address] [phone] 1 FASTING Copy Result to: VONNIE MIGUEL ([id number]) 2 Because ethnic data is not always [...] 5 Kidney failure <15 (or dialysis) 3 Desirable: <150 Borderline High: 150-199 High: 200-499 Very High: >500 4 Desirable: <200 Borderline High: 200-239 High: >239 5 Low: <40 Desirable: 40-60 High: >60 6 Desirable: <100 Near Optimal: 100-129 Borderline High: 130-159 High: 160-189 Very High: >189 7 Therapeutic target for the treatment of diabetes mellitus patients is <7% HBA1C, and in selective patients <6.0%. Please refer to [place] [employer] diabetic care guidelines for further information. Procedures Date Code Description Status 11/19/2018 47358 EKG Tracing & Interpretation Completed 08/26/2018 06997 ECHO Transthoracic, Real-Time 2D With Doppler And Color Completed Flow 08/26/2018 42299 ECHO Transthoracic, Real-Time 2D With Doppler And Color Completed Flow 07/24/2018 25983 EKG Tracing & Interpretation Completed 07/10/2018 55490 EKG, Interpretation Only Completed 07/09/2018 24182 Cath PLMT&NJX L Ventriculog Img S&I Completed 07/09/2018 33676 EKG, Interpretation Only Completed 07/09/2018 10541 Percutaneous Transcatheter Placement Of Intracoronary Completed Stent 07/08/2018 33059 ECHO Transthorasic Realtime 2D W Doppler & Color Flow Hosp Completed 07/08/2018 68144 EKG, Interpretation Only Completed 07/08/2018 63969 EKG, Interpretation Only Completed 07/08/2018 99790 EKG Tracing & Interpretation Completed Medical Devices Description No Information Available Encounters Type Date Location Provider Dx Diagnosis Office Visit 11/19/2018 [facility] Alfredo Gaytan I10 Essential ( primary) 1:20p Vivien Starks hypertension I21.4 Non-St elevation (Nstemi) myocardial infarction R73.9 Hyperglycemia, unspecified R00.1 Bradycardia, unspecified Office Visit 10/03/2018 1:30p [facility] Nurse Visit I10 Essential (primary) Of [facility] hypertension Office Visit 08/08/2018 1:30p [facility] Breana Jones I21.4 Non-St elevation Of [employer] Manuel, N.P. (Nstemi) myocardial infarction I10 Essential (primary) hypertension I25.5 Ischemic cardiomyopathy Z98.61 Coronary angioplasty status E78.5 Hyperlipidemia, unspecified I35.1 Nonrheumatic aortic (valve) insufficiency Office Visit 07/24/2018 3:20p [facility] Kaci Fountain I21.4 Non-St elevation Of [employer] AT [facility] MD Osito, (Nstemi) FAC, FSCAI myocardial infarction I10 Essential (primary) hypertension I25.5 Ischemic cardiomyopathy Office Visit 07/10/2018 10:13a [facility] [place] Myrna Paredes, I21.4 Non-St elevation Assoc,pc N.P. (Nstemi) Hospitalists myocardial infarction Z95.5 Presence of coronary angioplasty implant and graft Z86.79 Personal history of other diseases of the circulatory system F41.9 Anxiety disorder, unspecified I35.1 Nonrheumatic aortic (valve) insufficiency I34.0 Nonrheumatic mitral (valve) insufficiency Office Visit 07/10/2018 2:22p [facility] Lauryn Ivy, I21.4 Non- St elevation Of [employer] DIRECTOR OF PLACEMENT (Nstemi) myocardial infarction I25.10 Athscl heart disease of [place] coronary artery w/o ang pctrs Z98.61 Coronary angioplasty status E78.5 Hyperlipidemia, unspecified I10 Essential (primary) hypertension Office Visit 07/09/2018 10:13a [facility] [place] Myrna Paredes, I21.4 Non-St elevation Assoc,pc N.P. (Nstemi) Hospitalists myocardial infarction I10 Essential (primary) hypertension I71.9 Aortic aneurysm of unspecified site, without rupture F41.9 Anxiety disorder, unspecified Office Visit 07/08/2018 10:12a [facility] [place] Emi I21.4 Non-St elevation Assoc,pc Vivien Phillips (Nstemi) Hospitalists myocardial infarction I10 Essential (primary) hypertension F41.9 Anxiety disorder, unspecified Office Visit 07/08/2018 12:10p [facility] Zac Hurd I21.4 Non-St elevation Of [employer] Vivien Patterson (Nstemi) myocardial infarction Office Visit 06/26/2018 1:30p [facility] Nurse Visit IC I10 Essential Of [employer] (primary) hypertension Assessments Date Code Description Provider 12/12/2018 I10 Essential (primary) hypertension Breana Jcakson, N.P. 12/12/2018 I21.4 Non-St elevation (Nstemi) myocardial Breanalucas Jackson, N.P. infarction 12/12/2018 R00.1 Bradycardia Breana Jackson, N.P. 12/12/2018 Z95.5 Presence of coronary angioplasty Breana Jackson, N.P. implant and graft 11/19/2018 I10 Essential (primary) hypertension Alfredo Starks M.D. 11/19/2018 I21.4 Non-St elevation (Nstemi) myocardial Alfredo Starks M.D. infarction 11/19/2018 R73.9 Hyperglycemia Alfredo Starks M.D. 11/19/2018 R00.1 Bradycardia Alfredo Starks M.D. 10/03/2018 I10 Essential (primary) hypertension Nurse Visit IC 08/26/2018 Z95.5 Presence of coronary angioplasty Traveling ECHO 1 implant and graft 08/26/2018 I21.4 Non-St elevation (Nstemi) myocardial Traveling ECHO 1 infarction 08/26/2018 I25.2 Old myocardial infarction Alfredo Starks M.D. 08/26/2018 I25.2 Old myocardial infarction Traveling ECHO 1 08/08/2018 I21.4 Non-St elevation (Nstemi) myocardial Breana Jackson, N.P. infarction 08/08/2018 I10 Essential (primary) hypertension Breana Jackson, N.P. 08/08/2018 I25.5 Ischemic cardiomyopathy Breana Jackson, N.P. 08/08/2018 Z98.61 Coronary angioplasty status Breana Jackson, N.P. 08/08/2018 E78.5 Hyperlipidemia, unspecified Breana Jackson, N.P. 08/08/2018 I35.1 Nonrheumatic aortic (valve) Breana Jackson, N.P. insufficiency 07/24/2018 I21.4 Non-St elevation (Nstemi) myocardial Kaci Mcneill MD, FACC, infarction FSCAI 07/24/2018 I10 Essential (primary) hypertension Kaci Mcneill MD, [facility] 07/24/2018 I25.5 Ischemic cardiomyopathy Kaci Mcnelil MD, [facility], [facility] 07/10/2018 R94.31 Abnormal electrocardiogram [ECG] [EKG] German Miles M.D. 07/10/2018 I21.4 Non-St elevation (Nstemi) myocardial Myrna Paredes, N.P. infarction 07/10/2018 I21.4 Non-St elevation (Nstemi) myocardial Lauryn Ivy, DIRECTOR OF PLACEMENT infarction 07/10/2018 Z95.5 Presence of coronary angioplasty Myrna Paredes, N.P. implant and graft 07/10/2018 I25.10 Atherosclerotic heart disease of Lauryn Ivy DIRECTOR OF PLACEMENT [place] coronary artery with 07/10/2018 Z86.79 Personal history of other diseases of Myrna Paredes N.P. the circulatory system 07/10/2018 Z98.61 Coronary angioplasty status Lauryn Ivy, DIRECTOR OF PLACEMENT 07/10/2018 F41.9 Anxiety disorder, unspecified Myrna Paredes, N.P. 07/10/2018 E78.5 Hyperlipidemia, unspecified Lauryn Ivy, DIRECTOR OF PLACEMENT 07/10/2018 I35.1 Nonrheumatic aortic (valve) Myrna Paredes, N.P. insufficiency 07/10/2018 I10 Essential (primary) hypertension Lauryn Ivy, DIRECTOR OF PLACEMENT 07/10/2018 I34.0 Nonrheumatic mitral (valve) Myrna Paredes, N.P. insufficiency 07/09/2018 R94.31 Abnormal electrocardiogram [ECG] [EKG] German Miles M.D. 07/09/2018 I21.4 Non-St elevation (Nstemi) myocardial Luis F Ortiz M.D., [facility], infarction [facility] 07/09/2018 I25.10 Atherosclerotic heart disease of Luis F Ortiz M.D., [facility], [place] coronary artery with [facility] 07/09/2018 I21.4 Non-St elevation (Nstemi) myocardial Zac Patterson M.D. infarction 07/09/2018 I25.10 Atherosclerotic heart disease of Zac Patterson M.D. [place] coronary artery with 07/09/2018 I21.4 Non-St elevation (Nstemi) myocardial Myrna Paredes, N.P. infarction 07/09/2018 I10 Essential (primary) hypertension Myrna Paredes N.P. 07/09/2018 I71.9 Aortic aneurysm of unspecified site, Myrna Paredes, N.P. without rupture 07/09/2018 F41.9 Anxiety disorder, unspecified Myrna Paredes N.P. 07/08/2018 R94.31 Abnormal electrocardiogram [ECG] [EKG] German Miles M.D. 07/08/2018 R94.31 Abnormal electrocardiogram [ECG] [EKG] Nurse Visit IC 07/08/2018 I21.4 Non-St elevation (Nstemi) myocardial Zac Patterson M.D. infarction 07/08/2018 I21.4 Non-St elevation (Nstemi) myocardial Emi Phillips M.D. infarction 07/08/2018 R07.9 Chest pain, unspecified Nurse Visit IC 07/08/2018 I10 Essential (primary) hypertension Emi Phillips M.D. 07/08/2018 F41.9 Anxiety disorder, unspecified Emi Phillips M.D. 06/26/2018 I10 Essential (primary) hypertension Nurse Visit IC Plan of Treatment Future Appointment(s):02/11/2019 1:30 pm - Breana Jackson, N.P. at [facility]12/12/2018 - Breana Jackson, N.P.I10 Essential (primary) [id number] Non-St elevation (Nstemi) myocardial szwrgrfoidP14.1 BradycardiaFollow up:04/2019 OV [facility] 2mo OV SaraRecommendations:Wean off metoprolol take 1/2 every other day x 2 more doses then stop we will check in with you in 2-3 weeks to see if lightheadedness improved off metoprolol. If it continues we will consider decreasing spironolactone.Z95.5 Presence of coronary angioplasty implant and graft Functional Status Description No Information Available Mental Status Description No Information Available Referrals Description No Information Available
--- OUTSIDE RECORDS SUMMARY | 2018-12-13 21:06 | XMS REPORT | Continuity of Care Document ---
:1945 External Reference #:[id number] Author Name Alfredo Starks M.D. 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 Onset: 06/12/2011 Benign essential hypertension Alfredo Starks M.D. Onset: 06/12/2011 Aortic valve disorder Alfredo Starks M.D. Onset: 03/20/2013 Aneurysm of thoracic aorta Alfredo Starks M.D. Onset: 03/20/2013 Essential hypertension Alfredo Starks M.D. Onset: 03/30/2015 Acute subendocardial infarction Kaci Mcneill MD, [facility], [facility] Onset: Social History Type Date Description Comments Sex Unknown Tobacco Use Start: Unknown End: Former Cigarette Smoker smoked for 21 Unknown 1 Pack Daily years. Quit 23 years ago. ETOH Use Denies alcohol use Tobacco Use Start: Unknown End: Patient is a former Unknown smoker Recreational Drug Use Denies Drug Use Smoking Status Reviewed: 11/19/18 Patient is a former smoker Enjoy Exercising Enjoys exercising Exercise Type/Frequency Exercises regularly daily. Allergies, Adverse Reactions, Alerts Active Allergies Reaction Severity Comments Date Paxil felt poorly. 12/09/2008 Lexapro lethargy 12/09/2008 Inactive Allergies NKDA 06/16/2008 Medications Active Medications SIG Qnty Indications Ordering Provider Date Brilinta 1 tab by mouth 180tabs I21.4 Kaci ParmarKate Mcneill, 07/24/2018 90mg Tablets twice a day , [facility] Lipitor 1 by mouth at 90tabs Breana Jackson, 07/10/2018 40mg Tablets bedtime N.P. Nexium 1 by mouth Unknown 07/10/[address] every day as needed Diazepam 1 po qd prn 60tabs Other Physician 06/16/2008 5mg Tablets Practices Asa 1 po qd 30units Unknown 81mg Metoprolol Tartrate 1/2 by mouth 135tabs Breana Jackson, 25mg once a day N.P. Tablets Nitroglycerin 1 sl q5mins x3 Unknown 0.4mg [...] Available Vital Signs Date Vital Result Comment 11/19/2018 12:54pm Height 67 inches 5'7" Weight [...] 20.9 kg/m2 Ejection Fraction 55-60% Echocardiogram 08/26/2018 08/08/2018 1:20pm Height 67 inches 5'7" Weight 136.00 lb w/shoes Heart Rate 61 /min BP Systolic Sitting 120 mmHg Lue reg cuff BP Diastolic Sitting 80 mmHg Lue reg cuff BMI (Body Mass Index) 21.3 kg/m2 Ejection Fraction 60-65% 10/26/15 echo Results Test Date Facility Test Result H/L Range Note Basic Metabolic 05/28/2018 [facility] Sodium 142 mmol/L Normal 135-[address] [place] [address] [phone] Potassium 4.1 mmol/L Normal 3.5-5.0 Chloride 106 mmol/L Normal 101-111 Co2 Carbon Dioxide 33 mmol/L High 22-32 Anion Gap 3 mmol/L Normal 2-11 Glucose 91 mg/dL Normal 70-100 Blood Urea Nitrogen 20 mg/dL Normal 6-24 Creatinine 0.93 mg/dL Normal 0.51-0.95 BUN/Creatinine Ratio 21.5 High 8-20 Calcium 9.4 mg/dL Normal 8.6-10.3 Egfr Non- 58.9 >60 Egfr 71.3 >60 1 1 Because ethnic data is not always [...] (or dialysis) Procedures Date Code Description Status 11/19/2018 33316 EKG Tracing & Interpretation Completed 08/26/2018 00932 ECHO Transthoracic, Real-Time 2D With Doppler And Color Completed Flow 08/26/2018 92574 ECHO Transthoracic, Real-Time 2D With Doppler And Color Completed Flow 07/24/2018 81435 EKG Tracing & Interpretation Completed 07/10/2018 55304 EKG, Interpretation Only Completed 07/09/2018 62174 Cath PLMT&NJX L Ventriculog Img S&I Completed 07/09/2018 37151 EKG, Interpretation Only Completed 07/09/2018 94516 Percutaneous Transcatheter Placement Of Intracoronary Completed Stent 07/08/2018 02887 ECHO Transthorasic Realtime 2D W Doppler & Color Flow Hosp Completed 07/08/2018 26594 EKG, Interpretation Only Completed 07/08/2018 50474 EKG, Interpretation Only Completed 07/08/2018 82652 EKG Tracing & Interpretation Completed 05/28/2018 28235 EKG Tracing & Interpretation Completed Medical Devices Description No Information Available Encounters Type Date Location Provider Dx Diagnosis Office Visit 10/03/2018 [facility] Nurse Visit IC I10 Essential ( primary) 1:30p Of Bpm Analyst hypertension Office Visit 08/08/2018 [facility] Breana Jackson, I21.4 Non-St elevation 1:30p Of Bpm Analyst N.P. ([facility]stemi) myocardial infarction I10 Essential (primary) hypertension I25.5 Ischemic cardiomyopathy Z98.61 Coronary angioplasty status E78.5 Hyperlipidemia, unspecified I35.1 Nonrheumatic aortic (valve) insufficiency Office Visit 07/24/2018 3:20p [facility] Kaci Fountain I21.4 Non-St elevation Of Bpm Analyst AT [facility] MD Osito, (Nstemi) FACC, [facility] myocardial infarction I10 Essential (primary) hypertension I25.5 Ischemic cardiomyopathy Office Visit 07/10/2018 10:13a [facility] Myrna Paredes I21.4 Non-St elevation Assoc,pc N.P. 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 ([facility]stemi) Hospitalists myocardial infarction I10 Essential (primary) hypertension I71.9 Aortic aneurysm of unspecified site, without rupture F41.9 Anxiety disorder, unspecified Office Visit 07/08/2018 10:12a [facility] Emi I21.4 Non-St elevation Assoc,pc Vivien Phillips ([facility]) Hospitalists myocardial infarction I10 Essential (primary) hypertension F41.9 Anxiety disorder, unspecified Office Visit 07/08/2018 12:10p [facility] Zac Hurd I21.4 Non-St elevation Of Piper Patterson M.D. (Nstemi) myocardial infarction Office Visit 06/26/2018 1:30p [facility] Nurse Visit IC I10 Essential Of Bpm Analyst (primary) hypertension Office Visit 05/28/2018 2:30p [facility] Breana Jones I71.2 Thoracic aortic Of Bpm Analyst Manuel, N.P. aneurysm, without rupture I10 Essential (primary) hypertension I34.0 Nonrheumatic mitral (valve) insufficiency E78.00 Pure hypercholesterolemia, unspecified R00.1 Bradycardia, unspecified Assessments Date Code Description Provider 11/19/2018 I10 Essential (primary) hypertension Alfredo Starks [...] N.P. 08/08/2018 I35.1 Nonrheumatic aortic (valve) Breana Jackson N.P. insufficiency 07/24/2018 I21.4 Non-St elevation (Nstemi) myocardial Kaci Mcneill MD, [facility], infarction [facility] 07/24/2018 I10 Essential (primary) hypertension [facility] 07/24/2018 I25.5 Ischemic cardiomyopathy Kaci Mcneill MD, [facility], [facility] 07/10/2018 R94.31 Abnormal electrocardiogram [ECG] [EKG] German Miles M.D. 07/10/2018 I21.4 Non-St elevation (Nstemi) myocardial Myrna Paredes N.P. infarction 07/10/2018 I21.4 Non-St elevation (Nstemi) myocardial Lauryn Ivy, MULCHER OPERATOR infarction 07/10/2018 Z95.5 Presence of coronary angioplasty Myrna Paredes N.P. implant and graft 07/10/2018 I25.10 Atherosclerotic heart disease of Lauryn IvyDANIEL [place] coronary artery with 07/10/2018 Z86.79 Personal history of other diseases of Myrna Paredes N.P. the circulatory system 07/10/2018 Z98.61 Coronary angioplasty status Lauryn Ivy, MULCHER OPERATOR 07/10/2018 F41.9 Anxiety disorder, unspecified Myrna Paredes N.P. 07/10/2018 E78.5 Hyperlipidemia, unspecified Lauryn Ivy, MULCHER OPERATOR 07/10/2018 I35.1 Nonrheumatic aortic (valve) Myrna aPredes, N.P. insufficiency 07/10/2018 I10 Essential (primary) hypertension Lauryn Ivy, MULCHER OPERATOR 07/10/2018 I34.0 Nonrheumatic mitral (valve) Myrna Paredes, N.P. insufficiency 07/09/2018 R94.31 Abnormal electrocardiogram [ECG] [EKG] German Miles M.D. 07/09/2018 I21.4 Non-St elevation (Nstemi) myocardial Luis F Ortiz M.D., [facility], infarction [facility] 07/09/2018 I25.10 Atherosclerotic heart disease of Luis F Ortiz M.D., [facility] [place] coronary artery with [facility] 07/09/2018 I21.4 Non-St elevation (Nstemi) myocardial Zac Patterson M.D. infarction 07/09/2018 I25.10 Atherosclerotic heart disease of Zac Patterson M.D. [place] coronary artery with 07/09/2018 I21.4 Non-St elevation (Nstemi) myocardial Myrna Paredes N.P. infarction 07/09/2018 I10 Essential (primary) hypertension Myrna Paredes N.P. 07/09/2018 I71.9 Aortic aneurysm of unspecified site, Myrna Paredes, N.P. without rupture 07/09/2018 F41.9 Anxiety disorder, unspecified Myrna Paredes, N.P. 07/08/2018 R94.31 Abnormal electrocardiogram [ECG] [EKG] [...] I10 Essential (primary) hypertension Nurse Visit IC 05/28/2018 R00.1 Bradycardia, unspecified Alfredo Starks M.D. 05/28/2018 I71.2 Thoracic aortic aneurysm, without Breana Jackson, N.P. rupture 05/28/2018 I10 Essential (primary) hypertension Breana Jackson, N.P. 05/28/2018 I34.0 Nonrheumatic mitral (valve) Breana Jackson, N.P. insufficiency 05/28/2018 E78.00 Pure hypercholesterolemia, unspecified Breana Jackson, N.P. 05/28/2018 R00.1 Bradycardia, unspecified Breana Jackson, N.P. Plan of Treatment Future Appointment(s):12/12/2018 3:00 pm - Breana Jackson N.P. at [facility]11/19/2018 - Alfredo Starks M.D.I10 Essential (primary) rtgrmrsybizrV89.4 Non-St elevation (Nstemi) myocardial infarctionNew Therapy: Cardiac JqtmyU99.9 QzrmrzaczwjekM61.1 BradycardiaFollow up:bety Toussaint 2-3 weeks ov JFM 5 m Functional Status Description No Information Available Mental Status Description No Information Available Referrals Description No Information Available
[2018-12-13 21:53] LABS: Urine Appearance Turbid; Urine Bacteria 1+ (Absent); Urine Bilirubin Negative (Negative); Urine Blood 3+ (Negative); Urine Color Amber; Urine Glucose Negative (Negative); Urine Ketones Negative (Negative); Urine Nitrite Negative (Negative); Urine Protein 1+(30 mg/dL) (Negative); Urine Red Blood Cell 3+(>10/hpf) (Absent); Urine Specific Gravity 1.013 (1.010-1.030); Urine Squamous Epithelial Cell Present (Absent); Urine Urobilinogen Negative (Negative); Urine White Blood Cell 3+(>20/hpf) (Absent)
[2018-12-13 22:23] LABS: ABS Eosinophils 0.1 10^3/ul (0-0.6); ABS Lymphocytes 1.3 10^3/ul (1.0-4.8); ABS Monocytes 0.6 10^3/ul (0-0.8); ABS Neutrophils 6.6 10^3/ul (1.5-7.7); Eosinophil % 1.7 %; Hematocrit 43 % (35-47); Hemoglobin 14.1 g/dL (12.0-16.0); Lymphocyte % 15.3 %; Mean Corpuscular HGB Conc 33 g/dL (31-36); Mean Corpuscular Hemoglobin 29 pg (27-31); Mean Corpuscular Volume 88 fL (80-97); Mean Platelet Volume 7.6 fL (7.4-10.4); Nucleated Red Blood Cells % 0.1; Platelet Count 160 10^3/uL (150-450); Red Blood Count 4.85 10^6 /uL (3.70-4.87); Red Cell Distribution Width 14 % (10-15); White Blood Count 8.7 10^3/uL (3.5-10.8)
[2018-12-13 22:41] LABS: ALT 15 U/L (7-52); AST 22 U/L (13-39); Albumin/Globulin Ratio 1.3 (1-3); Alkaline Phosphatase 95 U/L (34-104); Anion Gap 5 mmol/L (2-11); BUN/Creatinine Ratio 21.8 (8-20); Blood Urea Nitrogen 27 mg/dL (6-24); C Reactive Protein < 1.00 mg/L (<8.01); CO2 Carbon Dioxide 26 mmol/L (22-32); Calcium 9.5 mg/dL (8.6-10.3); Chloride 107 mmol/L (101-111); EGFR African American 51.2 (>60); EGFR Non-African American 42.3 (>60); Glucose 101 mg/dL (70-100); Potassium 4.8 mmol/L (3.5-5.0); Sodium 138 mmol/L (135-145)
[2018-12-14] MEDS ORDERED: Cephalexin CAP* 500 MG PO ONE (00:22)
--- NOTE | 2018-12-14 00:38 | ED ---
GI/ HPI - HPI Summary HPI Summary: Patient complains of pain with urination, increased urinary frequency, blood in urine, bilateral low mild abdominal pain starting today. History of recurrent UTI. Eating and drinking normally. Denies fever, cough, sore throat, CP, SOB, N/V/D, change in BM, vaginal symptoms. - History of Current Complaint Chief Complaint: EDUrogenitalProblems Time Seen by Provider: 12/14/18 00:01 Stated Complaint: BLOOD IN URINE PER PT Hx Obtained From: Patient Onset/Duration: Started Hours Ago Timing: Intermittent Severity: Moderate Current Severity: Moderate Vaginal Bleeding Description: Bright Red Pain Intensity: 5 Location of Pain: RLQ, LLQ, Suprapubic Pain Characteristics: Cramping Associated Signs and Symptoms: Positive: Dysuria, Abdominal Pain, UTI Symptoms - Additional Pertinent History Primary Care Physician: BRENDEN - Allergy/Home Medications Allergies/Adverse Reactions: Allergies Allergy/AdvReac Type Severity Reaction Status Date / Time doxycycline Allergy Severe Coughing Verified 10/27/18 11:41 Home Medications: Home Medications Spironolactone 25 mg PO DAILY 12/14/18 [History Confirmed 12/14/18] PMH/Surg Hx/FS Hx/Imm Hx Endocrine/Hematology History: Denies: Hx Diabetes Cardiovascular History: Reports: Hx Aneurysm, Hx Hypertension Denies: Hx Angina, Hx Coronary Artery Disease, Hx Hypercholesterolemia, Hx Myocardial Infarction, Hx Pacemaker/ICD, Hx Valvular Heart Disease Respiratory History: Denies: Hx Asthma, Hx Chronic Obstructive Pulmonary Disease (COPD) Comment Only: Other Respiratory Problems/Disorders - hx of colapsed lung 1994 unknown reason History: Denies: Hx Chronic Renal Failure, Hx Renal Disease Sensory History: Reports: Hx Contacts or Glasses Denies: Hx Hearing Aid Opthamlomology History: Reports: Hx Contacts or Glasses EENT History: Denies: Hx Deafness Psychiatric History: Reports: Hx Anxiety - Surgical History Surgery Procedure, Year, and Place: hysterectomy Infectious Disease History: No Infectious Disease History: Denies: Traveled Outside the [place] in Last 30 Days - Family History Known Family History: Positive: Cardiac Disease, Diabetes - Social History Alcohol Use: Occasionally Hx Substance Use: No Substance Use Type: Reports: None Hx Tobacco Use: Yes Smoking Status (MU): Former Smoker Have You Smoked in the Last Year: No Review of Systems Constitutional: Negative Eyes: Negative ENT: Negative Cardiovascular: Negative Respiratory: Negative Positive: Abdominal Pain Positive: burning, frequency, hematuria Musculoskeletal: Negative Skin: Negative Neurological: Negative Psychological: Normal All Other Systems Reviewed And Are Negative: Yes Physical Exam - Summary Physical Exam Summary: Abdomen mildly tender to palpation in all lower quadrants. Upper abdominal exam unremarkable. Triage Information Reviewed: Yes Vital Signs On Initial Exam: Initial Vitals Temp Pulse Resp BP Pulse Ox 97 F 82 16 137/75 98 12/13/18 20:52 12/13/18 20:52 12/13/18 20:52 12/13/18 20:52 12/13/18 20:52 Vital Signs Reviewed: Yes Appearance: Positive: Well-Appearing Skin: Positive: Warm Head/Face: Positive: Normal Head/Face Inspection Eyes: Positive: Normal Neck: Positive: Supple Respiratory/Lung Sounds: Positive: Clear to Auscultation Cardiovascular: Positive: Normal Abdomen Description: Positive: Other: Musculoskeletal: Positive: Normal Neurological: Positive: Normal Psychiatric: Positive: Normal AVPU Assessment: Alert - Cathy Coma Scale Best Eye Response: 4 - Spontaneous Best Motor Response: 6 - Obeys Commands Best Verbal Response: 5 - Oriented Coma Scale Total: 15 Procedures - Sedation Patient Received Moderate/Deep Sedation with Procedure: No Diagnostics - Vital Signs Vital Signs Temp Pulse Resp BP Pulse Ox 12/13/18 22:54 97.4 F 69 18 124/69 99 12/13/18 20:52 97 F 82 16 137/75 98 - Laboratory Lab Results: Lab Results 12/13/18 12/13/18 12/13/18 Range/Units 21:00 22:14 22:14 WBC 8.7 (3.5-10.8) 10^3/uL RBC 4.85 (3.70-4.87) 10^6 /uL Hgb 14.1 (12.0-16.0) g/dL Hct 43 (35-47) % MCV 88 (80-97) fL MCH 29 (27-31) pg MCHC 33 (31-36) g/dL RDW 14 (10-15) % Plt Count 160 (150-450) 10^3/uL MPV 7.6 (7.4-10.4) fL Neut % (Auto) 76.1 % Lymph % (Auto) 15.3 % Davis % (Auto) 6.5 % Eos % (Auto) 1.7 % Baso % (Auto) 0.4 % Absolute Neuts (auto) 6.6 (1.5-7.7) 10^3/ul Absolute Lymphs (auto) 1.3 (1.0-4.8) 10^3/ul Absolute Monos (auto) 0.6 (0-0.8) 10^3/ul Absolute Eos (auto) 0.1 (0-0.6) 10^3/ul Absolute Basos (auto) 0.0 (0-0.2) 10^3/ul Absolute Nucleated RBC 0.0 10^3/ul Nucleated RBC % 0.1 Sodium 138 (135-145) mmol/L Potassium 4.8 (3.5-5.0) mmol/L Chloride 107 (101-111) mmol/L Carbon Dioxide 26 (22-32) mmol/L Anion Gap 5 (2-11) mmol/L BUN 27 H (6-24) mg/dL Creatinine 1.24 H (0.51-0.95) mg/dL Est GFR ( Amer) 51.2 (>60) Est GFR (Non-Af Amer) 42.3 (>60) BUN/Creatinine Ratio 21.8 H (8-20) Glucose 101 H (70-100) mg/dL Lactic Acid (0.5-2.0) mmol/L Calcium 9.5 (8.6-10.3) mg/dL Total Bilirubin 0.60 (0.2-1.0) mg/dL AST 22 (13-39) U/L ALT 15 (7-52) U/L Alkaline Phosphatase 95 (34-104) U/L C-Reactive Protein < 1.00 (<8.01) mg/L Total Protein 7.0 (6.4-8.9) g/dL Albumin 4.0 (3.2-5.2) g/dL Globulin 3.0 (2-4) g/dL Albumin/Globulin Ratio 1.3 (1-3) Lipase 32 (11.0-82.0) U/L Urine Color Christine Urine Appearance Turbid Urine pH 5.0 (5-9) Ur Specific Lincoln 1.013 (1.010-1.030) Urine Protein 1+(30 mg/dl) A (Negative) Urine Ketones Negative (Negative) Urine Blood 3+ A (Negative) Urine Nitrate Negative (Negative) Urine Bilirubin Negative (Negative) Urine Urobilinogen Negative (Negative) Ur Leukocyte Esterase 3+ A (Negative) Urine WBC (Auto) 3+(>20/hpf) A (Absent) Urine RBC (Auto) 3+(>10/hpf) A (Absent) Ur Squamous Epith Cells Present A (Absent) Urine Bacteria 1+ A (Absent) Urine Glucose Negative (Negative) 12/13/18 Range/Units 22:14 WBC (3.5-10.8) 10^3/uL RBC (3.70-4.87) 10^6 /uL Hgb (12.0-16.0) g/dL Hct (35-47) % MCV (80-97) fL MCH (27-31) pg MCHC (31-36) g/dL RDW (10-15) % Plt Count (150-450) 10^3/uL MPV (7.4-10.4) fL Neut % (Auto) % Lymph % (Auto) % Davis % (Auto) % Eos % (Auto) % Baso % (Auto) % Absolute Neuts (auto) (1.5-7.7) 10^3/ul Absolute Lymphs (auto) (1.0-4.8) 10^3/ul Absolute Monos (auto) (0-0.8) 10^3/ul Absolute Eos (auto) (0-0.6) 10^3/ul Absolute Basos (auto) (0-0.2) 10^3/ul Absolute Nucleated RBC 10^3/ul Nucleated RBC % Sodium (135-145) mmol/L Potassium (3.5-5.0) mmol/L Chloride (101-111) mmol/L Carbon Dioxide (22-32) mmol/L Anion Gap (2-11) mmol/L BUN (6-24) mg/dL Creatinine (0.51-0.95) mg/dL Est GFR ( Amer) (>60) Est GFR (Non-Af Amer) (>60) BUN/Creatinine Ratio (8-20) Glucose (70-100) mg/dL Lactic Acid 0.6 (0.5-2.0) mmol/L Calcium (8.6-10.3) mg/dL Total Bilirubin (0.2-1.0) mg/dL AST (13-39) U/L ALT (7-52) U/L Alkaline Phosphatase (34-104) U/L C-Reactive Protein (<8.01) mg/L Total Protein (6.4-8.9) g/dL Albumin (3.2-5.2) g/dL Globulin (2-4) g/dL Albumin/Globulin Ratio (1-3) Lipase (11.0-82.0) U/L Urine Color Urine Appearance Urine pH (5-9) Ur Specific [place] (1.010-1.030) Urine Protein (Negative) Urine Ketones (Negative) Urine Blood (Negative) Urine Nitrate (Negative) Urine Bilirubin (Negative) Urine Urobilinogen (Negative) Ur Leukocyte Esterase (Negative) Urine WBC (Auto) (Absent) Urine RBC (Auto) (Absent) Ur Squamous Epith Cells (Absent) Urine Bacteria (Absent) Urine Glucose (Negative) Result Diagrams: 12/13/18 22:14 12/13/18 22:14 Lab Statement: Any lab studies that have been ordered have been reviewed, and results considered in the medical decision making process. GIGU Course/Dx - Course Course Of Treatment: Patient complains of pain with urination, increased urinary frequency, blood in urine, bilateral low mild abdominal pain starting today. History of recurrent UTI. Eating and drinking normally. Denies fever, cough, sore throat, CP, SOB, N/V/D, change in BM, vaginal symptoms. Vital signs within normal limits. Creatinine 1.24, history of same. Labs otherwise unremarkable. Rx for Keflex. - Diagnoses Provider Diagnoses: UTI (urinary tract infection) Discharge ED - Sign-Out/Discharge Documenting (check all that apply): Patient Departure - Discharge Plan Condition: Stable Disposition: HOME Prescriptions: Cephalexin CAP* [Keflex CAP*] 500 mg PO TID 7 Days #21 cap Patient Education Materials: Urinary Tract Infection in Women (ED) Referrals: Vonnie Miguel MD [Primary Care Provider] - Additional Instructions: Take antibiotics as directed. Drink plenty of water to maintain hydration. Follow-up with primary care. Return to the ED for any new or worsening symptoms. - Billing Disposition and Condition Condition: STABLE Disposition: Home
[2018-12-14 00:51] VITALS: BP 144/79
--- NOTE | 2018-12-17 05:42 | ED ---
Imaging and Labs Follow Up Follow Up Type: Labs/Cultures Labs/Culture Result: urine culture final grew Escherichia coli 75-100,000 Patient Communication/Plan: Patient was placed on Keflex prior to discharge; this is sensitive to organism Patient Communication/Plan: Nothing further required Provider Diagnoses: UTI (urinary tract infection)
== END 2018-12-14 00:51 | disposition home or self-care (01) ==
LOC: ED 20:50
DX: N39.0 Urinary tract infection, site not specified (principal); B96.20 Unspecified Escherichia coli [E. coli] as the cause of diseases classified elsewhere; R31.9 Hematuria, unspecified; Z87.440 Personal history of urinary (tract) infections; I10 Essential (primary) hypertension; Z90.710 Acquired absence of both cervix and uterus; Z88.1 Allergy status to other antibiotic agents; Z87.891 Personal history of nicotine dependence
CPT/HCPCS: 36415; 80053; 81003; 81015; 83605; 83690; 85025; 86140; 87077; 87086; 87186; 99283; A9270-GY